=== PATIENT | female | born 1960 | race Caucasian/White ===

== ENCOUNTER → 2018-11-11 11:58 | Outpatient (CLI) | payer MEDICAID, SELFPAY ==
--- NOTE | 2018-11-11 12:03 | XR_ITS ---
XR chest 2V HISTORY: ITS.REASON: COUGH ORDERING PHYSICIAN: Letty Jewell PATIENT AGE: 57 years COMPARISON: 06/28/2017 FINDINGS: Unremarkable cardiovascular structures. There is COPD with small bilateral pleural effusions. Parenchymal opacity is present in the left lower lobe and may be due to an area of atelectasis or infiltrate. A nodular opacity is present in the left perihilar region at 1.8 x 1.2 cm and could be due to an area of infiltrate or fibrosis versus developing pulmonary nodule. Chest CT with contrast suggested for further evaluation. There is prominence of the left hilum with increased density in the left perihilar region. Patchy density is also present in the right upper lobe be due to an area of infiltrate. No acute bony findings. IMPRESSION: 1. COPD with bilateral effusions and left basilar atelectasis or infiltrate with patchy infiltrate in the right upper lobe. 2. Prominent left hilum with nodular opacities in the left perihilar region. Neoplasm is not excluded and chest CT with contrast is suggested for follow-up evaluation.
== END ==
PROVIDERS: PCP Nurse Practitioner Family; Visit Provider Nurse Practitioner Family
DX: R05 Cough (principal)
CPT/HCPCS: 71046

== ENCOUNTER 2020-12-02 21:30 | Inpatient (IN) | payer MEDICARE, OTHER, SELFPAY ==
[2020-12-02 21:32] VITALS: BP 111/65; PULSE 100; RESP 22; TEMP 37.1; O2SAT 100; BMI 19.2
[2020-12-02 21:47] VITALS: BP 109/59; PULSE 94; RESP 22; O2SAT 93
--- NOTE | 2020-12-02 21:47 | XR_ITS ---
PROCEDURE: XR WRIST RT MIN 3V CLINICAL INDICATION: fall Pain COMPARISON: No exams were available for comparison FINDINGS: Nondisplaced fracture involves the diaphyseal metaphyseal junction of the distal radius 1 cm proximal to the articular surface. The fracture is transverse in nature. The ulna has an unremarkable appearance. IMPRESSION: Nondisplaced transverse distal radial fracture Dictated by: Talon Adkins MD 12/03/2020 05:38 Talon Adkins MD in [facility] 12/03/2020 05:38
--- NOTE | 2020-12-02 21:47 | CT_ITS ---
PROCEDURE: CT PELVIS WO CON CLINICAL INDICATION: fall Posttraumatic pain, fall with right hip pain COMPARISON: CT CT HIP RT WO CON from 12/02/2020 TECHNIQUE: Axial images obtained with sagittal and coronal reformats. All CT scans at the facility use one or more dose reduction, viz: automated exposure control, ma/kV adjustment per patient size (including targeted exams where dose is matched to indication, i.e. head), or iterative reconstruction technique. FINDINGS: There and impacted subcapital right femoral neck fracture. There is 17 mm proximal displacement of the distal fracture fragment as well as thirteen mm anterior displacement of the distal fracture fragment with external rotation of the distal fracture fragment. Along the anterior aspect of the femoral neck there is a faint lucency better seen on the dedicated hip CT axial image 39 and may only be related to a vascular groove. There is a moderate amount of retained colonic feces. IMPRESSION: Impacted subcapital right femoral neck fracture Dictated by: Talon Adkins MD 12/03/2020 06:32 Talon Adkins MD in [facility] 12/03/2020 06:32
--- NOTE | 2020-12-02 21:47 | XR_ITS ---
PROCEDURE: XR CHEST AP CLINICAL HISTORY: fall Posttraumatic pain COMPARISON: CR CXR CHEST(2 VIEWS-NOT PORTABLE) from 05/22/2017 CR CXR1 CHEST-PORTABLE from 06/28/2017 CR CXR2V XR chest 2V from 11/11/[address] CERVICAL SPINE WO CON from 12/02/2020 FINDINGS: Cardiomegaly with mild pulmonary venous congestion. Right IJ MediPort catheter is present with the tip in region of the distal SVC. The lungs are under penetrated. There are bilateral pleural effusions right larger than left. Increased density is present in the right mid and lower lung zone some which may be due to the underpenetration and patient positioning. Underlying pneumonia is also suspected at least in the lung base. No acute bony findings. IMPRESSION: Bilateral pleural effusions with right-sided pneumonia with mild CHF Dictated by: Talon Adkins MD 12/03/2020 05:42 Talon Adknis MD in [facility] 12/03/2020 05:42
--- NOTE | 2020-12-02 21:47 | CT_ITS ---
PROCEDURE: CT CERVICAL SPINE WO CON CLINICAL INDICATION: fall Neck injury with pain, contusion/abrasion or hematoma, cervical sprain/strain COMPARISON: No exams were available for comparison TECHNIQUE: Axial images obtained with sagittal and coronal reformats. All CT scans at the facility use one or more dose reduction, viz: automated exposure control, ma/kV adjustment per patient size (including targeted exams where dose is matched to indication, i.e. head), or iterative reconstruction technique. Axial spiral CT scanning performed of the cervical spine beginning at the base of the skull and continuing to the upper T-spine. 3-D multiplanar reconstruction with 3-D manipulation of volumetric data set in image rendering was completed by the radiologist and/or technologist with the supervision of the radiologist on independent workstation. FINDINGS: Normal alignment. No acute fracture or dislocation. Minimal cervical curvature convex right. Degenerative disc disease C6-C7. mild left foraminal narrowing C6-C7. Emphysematous changes lung apices. Right IJ MediPort catheter. Retention cyst in the left maxillary sinus. Left ethmoid small osteoma. IMPRESSION: No acute fracture Dictated by: Talon Adkins MD 12/03/2020 06:49 Talon Adkins MD in [facility] 12/03/2020 06:49
--- NOTE | 2020-12-02 21:47 | CT_ITS ---
PROCEDURE: CT HEAD/BRAIN WO CON CLINICAL INDICATION: fall Head injury with headache/pain, contusion, abrasion or hematoma COMPARISON: No exams were available for comparison TECHNIQUE: Axial images obtained. All CT scans at the facility use one or more dose reduction, viz: automated exposure control, ma/kV adjustment per patient size (including targeted exams where dose is matched to indication, i.e. head), or iterative reconstruction technique. FINDINGS: No midline shift, mass effect, intracranial hemorrhage, hydrocephalus, or extra-axial fluid collection is evident. There is generalized atrophy with hypoattenuation of the periventricular white matter consistent with microangiopathic changes. The calvarium has an unremarkable appearance. No mastoid effusion. Mucosal thickening is present in the ethmoid sinuses. Left maxillary retention cyst. Small osteoma mid aspect of the left ethmoid sinus. Small area of exostosis versus hyperdense subcutaneous nodule right frontal region of the vertex.. IMPRESSION: No acute intracranial finding Dictated by: Talon Adkins MD 12/03/2020 06:23 Talon Adkins MD in [facility] 12/03/2020 06:23
--- NOTE | 2020-12-02 21:47 | XR_ITS ---
PROCEDURE: XR PELVIS 1-2V CLINICAL INDICATION: fall Posttraumatic pain COMPARISON: CT CT HIP RT WO CON from 12/02/2020 TECHNIQUE: Transcervical right femoral neck fracture with foreshortening of the fracture fragments and proximal displacement of the distal fracture fragment by 19 mm. The femoral head is located. There is diffuse overlying artifact from the patient's garment or sheet. FINDINGS: Transcervical right femoral neck fracture with foreshortening of the fracture fragments No significant degenerative change. No lytic or blastic change. IMPRESSION: No acute findings. Dictated by: Talon Adkins MD 12/03/2020 05:36 Talon Adkins MD in [facility] 12/03/2020 05:36
[2020-12-02 21:55] LABS: ABG Base Excess 5.5 mmol/L (-2.4-2.3); ABG HCO3 30.8 mmhg (22.0-26.0); ABG Oxygen Saturation 96 % (90-100); ABG PH 7.37 mmol/L (7.35-7.45); ABG PO2 83.7 mmhg (80-100); ABG TCO2 32.5 mmhg (23-27); Allen's Test Y; Oxygen 4 %
[2020-12-02 21:56] LABS: ABG PCO2 54.5 mmhg (35.0-45.0); Source R/R
[2020-12-02 22:24] VITALS: BP 107/66; PULSE 95; RESP 22; O2SAT 92
[2020-12-02 22:34] LABS: Basophils # 0.5 K/mm3 (0-0.2); Basophils % 0.9 % (0.1-2.0); Eosinophils # 0.1 K/mm3 (0.0-0.4); Eosinophils % 0.2 % (0.1-12.0); Hemoglobin 9.4 g/dL (12.2-16.2); Lymphocytes # 1.1 K/mm3 (0.7-4.5); Mean Corpuscular HGB Conc 32.3 g/dL (31.8-35.4); Mean Corpuscular Hemoglobin 28.1 pg (27.0-31.2); Mean Platelet Volume 7.3 fl (7.4-10.4); Monocytes % 1.9 % (1.7-9.3); Neutrophils # 52.2 K/mm3 (1.8-7.8); Red Blood Count 3.36 M/mm3 (4.20-5.40); Red Cell Distribution Width 16.8 % (11.5-17.5)
[2020-12-02 22:36] LABS: Alanine Aminotransferase 47 U/L (12-78); Albumin Level 3.3 g/dl (3.5-5.0); Albumin/Globulin Ratio 1.4 (1.1-1.8); Alkaline Phosphatase 70 U/L (38-126); Anion Gap 8.1 mEq/L (5-15); Aspartate Amino Transferase 38 U/L (14-36); Blood Urea Nitrogen 29 mg/dl (7-17); Calcium 9.2 mg/dl (8.4-10.2); Carbon Dioxide 31 mmol/L (22.0-30.0); Chloride 105 mmol/L (98-107); Creatinine Clearance Estimated 55 mL/min (50-200); Estimated Glomerular Filt Rate 64 ml/min (>60); GFR (African American) 77 ML/MIN (>60); Globulin 2.3 g/dL (1.3-3.2); Glucose 115 mg/dl (74-100); Potassium 4.1 mmoL/L (3.5-5.1); Sodium 140 mmol/L (136-145); Total Protein,Serum 5.6 g/dl (6.3-8.2); White Blood Count 54.9 K/mm3 (4.8-10.8)
[2020-12-02 22:37] LABS: Hematocrit 29.2 % (37.0-47.0); Platelet Count 642 K/mm3 (142-424)
[2020-12-02 22:38] LABS: Bilirubin,Total 0.1 mg/dl (0.2-1.3); MANUAL DIFFERENTIAL MANUAL DIFFERENTIAL (MANUAL DIFF)
[2020-12-02 22:42] LABS: C-Reactive Protein 1.9 mg/L (0-4)
--- NOTE | 2020-12-02 22:50 | PC.NURSE ---
Critical WBC given to Dr. Smiley
[2020-12-02 22:55] LABS: Procalcitonin 0.082 ng/mL (0.0-2.0)
[2020-12-02 22:58] LABS: Lactic Acid 0.9 mmol/L (0.7-2.1)
[2020-12-02 23:16] LABS: Erythrocyte Sedimentation Rate 31 mm/hr (0-30)
[2020-12-02 23:31] LABS: Lymphocytes % 4 % (10-50); Neutrophils % 92 % (42-76); Total Cells Counted 100
[2020-12-02 23:32] LABS: Platelet Estimate Moderate Increase
[2020-12-02 23:33] LABS: RBC Morphology Normal
[2020-12-03] VITALS (11 sets, daily range): BP systolic 107–144; BP diastolic 66–75; PULSE 88–100; RESP 18–22; TEMP 36.7–37.1; O2SAT 90–99; BMI 19.2
--- NOTE | 2020-12-03 00:28 | HMH.EDFALL ---
ED Disposition Clinical Impression: Syncope Qualifiers: Syncope type: unspecified Qualified Code(s): R55 - Syncope and collapse Hip fracture Qualifiers: Encounter type: initial encounter Fracture type: closed Laterality: right Qualified Code(s): S72.001A - Fracture of unspecified part of neck of right femur, initial encounter for closed fracture Wrist fracture, right Qualifiers: Encounter type: initial encounter Fracture type: closed Qualified Code(s): S62.101A - Fracture of unspecified carpal bone, right wrist, initial encounter for closed fracture COPD (chronic obstructive pulmonary disease) Qualifiers: COPD type: unspecified COPD Qualified Code(s): J44.9 - Chronic obstructive pulmonary disease, unspecified Leukocytosis Qualifiers: Leukocytosis type: unspecified Qualified Code(s): D72.829 - Elevated white blood cell count, unspecified Anemia Qualifiers: Anemia type: unspecified type Qualified Code(s): D64.9 - Anemia, unspecified Breast cancer in female Qualifiers: Breast location: unspecified site of breast Estrogen receptor status: unspecified Laterality: unspecified laterality Qualified Code(s): C50.919 - Malignant neoplasm of unspecified site of unspecified female breast Disposition: Admitted As Inpatient Condition on Discharge: Serious - Critical Care Critical Care Time: No Attestation: On 12/02/20, the high probability of a clinically significant, sudden or life threatening deterioration of the following system(s) required my full and direct attention, intervention and personal management. The time I documented below is in addition to time spent performing reported procedures but includes the following listed in this critical care notation. Medical Decision Making - Medical Records Medical records reviewed: Yes: I reviewed the patient's medical records. - Reagan Inquiry Pt receiving controlled substance: No Vital Signs: 12/02/20 21:32 12/02/20 21:47 12/02/20 22:24 Temperature 98.8 F Temperature Source Oral Pulse Rate 94 H 95 H Pulse Rate [Right] 100 H Respiratory Rate 22 22 Blood Pressure 109/59 L 107/66 L Blood Pressure [Left Arm] 111/65 Blood Pressure Mean [Left Arm] 80 Blood Pressure Source [Left Arm] Automatic Cuff Blood Pressure Position [Left Arm] Supine 02 Sat by Pulse Oximetry 100 93 L 92 L Oxygen Delivery Method Nasal Cannula Nasal Cannula Oxygen Flow Rate (LPM) 4 4 12/03/20 01:24 Temperature Temperature Source Pulse Rate 92 H Pulse Rate [Right] Respiratory Rate 22 Blood Pressure 110/73 Blood Pressure [Left Arm] Blood Pressure Mean [Left Arm] Blood Pressure Source [Left Arm] Blood Pressure Position [Left Arm] 02 Sat by Pulse Oximetry 90 L Oxygen Delivery Method Nasal Cannula Oxygen Flow Rate (LPM) 4 - Lab Data Lab results reviewed: Yes: I reviewed the patient's lab results. Lab Results 12/02/20 21:54: Specimen Source R/r, O2 % 4, ABG pH 7.37, ABG pCO2 54.5 H, ABG pO2 83.7, ABG HCO3 30.8 H, ABG Total CO2 32.5 H, ABG O2 Saturation 96, ABG Base Excess 5.5 H, Talon Test Y 12/02/20 22:20: WBC 54.9 H*, RBC 3.36 L, Hgb 9.4 L, Hct 29.2 L, MCV 87.0, MCH 28.1, MCHC 32.3, RDW 16.8, Plt Count 642 H, MPV 7.3 L, Neut % (Auto) 95.0 H, Lymph % (Auto) 2.0 L, [place] % (Auto) 1.9, Eos % (Auto) 0.2, Baso % (Auto) 0.9, Neut # (Auto) 52.2 H, Lymph # (Auto) 1.1, [place] # (Auto) 1.0, Eos # (Auto) 0.1, Baso # (Auto) 0.5 H, Total Counted 100, Neutrophils % (Manual) 92 H, Band Neutrophils % 3.0, Lymphocytes % (Manual) 4 L, Metamyelocytes % 1.0, Platelet Estimate Moderate increase, RBC Morphology Normal, ESR 31 H 12/02/20 22:20: Sodium 140, Potassium 4.1, Chloride 105, Carbon Dioxide 31 H, Anion Gap 8.1, BUN 29 H, Creatinine 0.90, Estimated Creat Clear 55, Estimated GFR 64, Est GFR ( Amer) 77, Glucose 115 H, Calcium 9.2, Total Bilirubin 0.1 L, AST 38 H, ALT 47, Alkaline Phosphatase 70, C-Reactive Protein 1.9, Total Protein 5.6 L, Albumin 3.3 L, Globulin 2.3, Albumin/Globu
--- NOTE | 2020-12-03 00:31 | ECG_ITS ---
APPROVED REPORT Exam: Resting ECG HR:93 bpm ECG Measurements Heart Rate 93 AXES GA 148 P 79 QRSd 86 QRS 78 QT 330 T 66 QTc 410 Conclusion Normal sinus rhythm Normal ECG Electronically signed by : Tong Ho, 12/03/2020 19:01:26
[2020-12-03 00:41] LABS: Adenovirus,PCR Not Detected (NotDetected); Bordetella Pertussis Not Detected (NotDetected); Chlamydophila Pneumoniae, PCR Not Detected (NotDetected); Coronavirus 19, PCR Not Detected (NotDetected); Coronavirus 229E Not Detected (NotDetected); Coronavirus NL63 Not Detected (NotDetected); Coronavirus OC43 Not Detected (NotDetected); Coronovirus HKU1,PCR Not Detected (NotDetected); Human Metapneumovirus Not Detected (NotDetected); Influenza A, PCR Not Detected (NotDetected); Influenza AH1, 2009 Not Detected (NotDetected); Influenza AH1, PCR Not Detected (NotDetected); Influenza AH3,PCR Not Detected (NotDetected); Influenza B, PCR Not Detected (NotDetected); Mycoplasma Pneumoniae, PCR Not Detected (NotDetected); Parainfluenza 1, PCR Not Detected (NotDetected); Parainfluenza 2, PCR Not Detected (NotDetected); Parainfluenza 3, PCR Not Detected (NotDetected); Parainfluenza 4, PCR Not Detected (NotDetected); Respiratory Syncytial Virus Not Detected (NotDetected); Rhinovirus/Enterovirus Not Detected (NotDetected)
[2020-12-03 00:54] LABS: Troponin I < 0.01 ng/ml (0.00-0.034)
--- NOTE | 2020-12-03 01:30 | PC.NURSE ---
spoke with renee from pharmacy about lovenox dosage
[2020-12-03 03:50] LABS: Troponin I < 0.01 ng/ml (0.00-0.034)
[2020-12-03 07:09] LABS: Basophils # 0.6 K/mm3 (0-0.2); Basophils % 0.9 % (0.1-2.0); Hematocrit 29.7 % (37.0-47.0); Hemoglobin 9.2 g/dL (12.2-16.2); Lymphocytes # 2.2 K/mm3 (0.7-4.5); Lymphocytes % 3.5 % (10-50); Mean Corpuscular HGB Conc 30.9 g/dL (31.8-35.4); Mean Corpuscular Hemoglobin 27.7 pg (27.0-31.2); Mean Corpuscular Volume 89.6 fl (81-99); Mean Platelet Volume 7.6 fl (7.4-10.4); Monocytes # 1.6 K/mm3 (0.1-1.0); Monocytes % 2.4 % (1.7-9.3); Neutrophils # 60.6 K/mm3 (1.8-7.8); Neutrophils % 93.2 % (37.0-80.0); Platelet Count 641 K/mm3 (142-424); Red Blood Count 3.32 M/mm3 (4.20-5.40); Red Cell Distribution Width 16.7 % (11.5-17.5)
[2020-12-03 07:16] LABS: MANUAL DIFFERENTIAL MANUAL DIFFERENTIAL (MANUAL DIFF)
[2020-12-03 07:27] LABS: Chloride 103 mmol/L (98-107); Potassium 4.7 mmoL/L (3.5-5.1); Sodium 138 mmol/L (136-145)
[2020-12-03 07:30] LABS: Anion Gap 2.7 mEq/L (5-15); Blood Urea Nitrogen 30 mg/dl (7-17); Calcium 9.6 mg/dl (8.4-10.2); Carbon Dioxide 37 mmol/L (22.0-30.0); Creatinine Clearance Estimated 55 mL/min (50-200); Estimated Glomerular Filt Rate 85 ml/min (>60); GFR (African American) 103 ML/MIN (>60); Glucose 81 mg/dl (74-100)
[2020-12-03 07:33] LABS: INR 0.98 (0.9-1.1); Prothrombin Time 11.6 seconds (10.1-12.5); Troponin I < 0.01 ng/ml (0.00-0.034)
--- NOTE | 2020-12-03 08:00 | CA_ITS ---
APPROVED REPORT EXAM: Comprehensive 2D, Doppler, and color-flow Echocardiogram Mate Fishing Vessel: Radha Ellison CRT Ht: 5 ft 9 in Wt: 130lbs BSA: 1.72 BP: 110/73 mmHg Indications: COPD, Syncope, preop hip fx, wrist fx, smoker 2D Dimensions LVOT 1.77 cm (M/F) 1.5-2.5 LA Volume 31.90 mL LA Volume Index [id number] mL/m2 (M/F) 16-34 M-Mode Dimensions RVDd 2.59 cm (0.9-2.6) LA Diam 3.37 cm (1.9-4.0) LVDd 4.38 cm (3.5-5.7) Ao Diam 3.83 cm (2.0-3.7) LVDs 2.66 cm (3.5-5.7) IVSd 1.22 cm (0.6-1.1) PWd 1.19 cm (0.6-1.1) EF (Teich) 70.00% FS 39.30% EDV (Teich) 86.80 mL ESV (Teich) 26.00 mL LV Diastology E Decel Time 93.00 (160-240 msec) E/A Ratio 0.91 MED E' 10.50 (< 7 cm/sec) MED A' 14.60 cm/s E'/MED E' Ratio 8.67 (>14) LAT E' 11.50 (<10 cm/sec) LAT A' 16.50 cm/s E/LAT E' Ratio 7.91 (>14) Aortic Valve AO Peak GR. 9.90 mmHg Mitral Valve MV A Velocity 100.00 (40-130 cm/s) E/A Ratio 0.91 MV Decel. Time 93.00 (160-240 ms) Pulmonary Valve PV Peak Velocity 85.00 (50-150 cm/s) Tricuspid Valve TR P. Velocity 147.00 cm/s RAP Estimate 10.00 mmHg RVSP 18.70 mmHg Left Ventricle Technically difficult study because of the patient factors and poor acoustic windows. Left atrium is mildly enlarged, left ventricle is normal size, mild concentric left ventricular hypertrophy, visually estimated ejection fraction 55% with no regional wall motion abnormality, grade 1 diastolic dysfunction seen without tissue Doppler evidence of raise left atrial pressure. Right Ventricle Right atrium and right ventricle are mildly enlarged with normal contractility. Aortic Valve Aortic valve is minimally thickened and fibrosed, there is no aortic stenosis or aortic insufficiency. Mitral Valve Mitral valve is grossly normal, there is trace mitral regurgitation. Tricuspid Valve Tricuspid grossly normal, there is trace tricuspid regurgitation, tricuspid regurgitation jet velocity is inadequate for calculation of the right ventricular systolic pressure. Pulmonic Valve Pulmonic valve is poorly visualized. Great Vessels Aortic root is normal size. Pericardium No significant pericardial effusion noted. Conclusion 1. Mild biatrial abdomen, normal left ventricular size, visually estimated ejection fraction 55% with no regional wall motion abnormality, grade 1 diastolic dysfunction seen without tissue Doppler evidence of raise left atrial pressure. 2. Mildly enlarged right ventricle with normal contractility. 3. Trace mitral and tricuspid regurgitation. 4. No significant pericardial effusion noted. Electronically signed by : Dixon Nolasco, 12/03/2020 10:12:16
--- NOTE | 2020-12-03 08:05 | PC.NURSE ---
Addendum entered by Kirk Mccord RN 12/03/20 08:43: DATE ENTERED INCORRECTLY 12/03/2020 Original Note: SPOKE WITH DR GRAY REGARDING PT WBC COUNT @ 0745 12/02/2020.
--- NOTE | 2020-12-03 08:45 | XR_ITS ---
PROCEDURE: XR HIP RT 2-3V W/PELVIS CLINICAL INDICATION: R hip fx Follow-up fracture COMPARISON: CR XR PELVIS 1-2V from 12/02/2020 FINDINGS: Right subcapital femoral neck fracture is present with foreshortening of the fracture fragments. There is 1.7 cm proximal displacement of the distal fracture fragment. The femoral head is located. IMPRESSION: Subcapital right femoral neck fracture with foreshortening of the fracture fragments similar to the previous exam Dictated by: Talon Adkins MD 12/03/2020 15:43 Talon Adkins MD in [place] 12/03/2020 15:43
--- NOTE | 2020-12-03 09:14 | HMH.HP ---
*Admission Date: 12/03/20 *Chief complaint: Fall at home with right hip fracture *History of present illness: 59-year-old white female with oxygen requiring COPD and a history of breast cancer, metastatic to lung, lymph nodes, currently on active chemotherapy with Port-A-Cath in place, who was in her house yesterday doing some kitchen work and fell down after getting some food out of the refrigerator, fell onto her pelvic area, was unable to walk, brought to the emergency department. Found to have hip fracture, wrist fracture and was admitted to hospital for further evaluation. This morning she feels about her normal self, wearing oxygen, comfortable, denies pain or shortness of air as long as she does not move about. [facility] History I have reviewed the patient's past medical history: Yes Medical History: Reports:: Cancer, Congestive Heart Failure Denies:: Diabetes Mellitus Type 1, Diabetes Mellitus Type 2 *Have you ever received a pneumonia vaccine?: Yes *Have you received a flu vaccine this season?: Yes - *Social History Last grade of school completed: High school graduate Smoking Status: Current every day smoker Tobacco Type: cigarettes # Packs/Day (cigarettes): 1 Alcohol Intake: never *Occupational Status:: retired *Travel in the last 8 weeks: None Family Hx:: No significant family history Review of Systems - Review of Systems Review of systems:: pertinent systems reviewed and negative unless documented below - *Neurologic Reports weakness, Denies abnormal speech, Denies localized weakness, Denies seizure-like activity Meds Home Medications Medication Instructions Recorded Confirmed Type Amitriptyline HCl 100 mg PO HS 12/02/20 12/02/20 History Ascorbic Acid [Vitamin C] 1,000 mg PO DAILY 12/02/20 12/02/20 History Bifidobacterium Infantis [Align] 4 mg PO DAILY 12/02/20 12/02/20 History Cetirizine HCl [Zyrtec] 10 mg PO DAILY 12/02/20 12/02/20 History Cholecalciferol (Vitamin D3) 50,000 unit PO WEEKLY 12/02/20 12/02/20 History [Vitamin D3 50,000 unit Cap] Citalopram Hydrobromide 10 mg PO DAILY 12/02/20 12/02/20 History [Citalopram 10mg Tablet] Diphenoxylate HCl/Atropine 2.5 mg PO BID PRN 12/02/20 12/02/20 History [Lomotil 2.5mg tablet] Fluconazole [Diflucan] 200 mg PO WEEKLY 12/02/20 12/02/20 History LORazepam [Lorazepam 1mg Tablet] 1 mg PO Q6 PRN 12/02/20 12/02/20 History Megestrol Acetate [Megestrol 400 mg PO BID 12/02/20 12/02/20 History Acetate 400mg/10mL Udc] Nystatin [Nystatin Susp 500,000 10 ml PO QID 12/02/20 12/02/20 History Units/5mL Udc] Venlafaxine HCl [Venlafaxine HCl 150 mg PO HS 12/02/20 12/02/20 History ER] guaiFENesin [Mucinex 600mg tablet] 1,200 mg PO HS 12/02/20 12/02/20 History levoFLOXacin [Levofloxacin 750MG 750 mg PO DAILY 12/02/20 12/02/20 History Tablet*] methylPREDNISolone 1 dose PO DAILY 12/02/20 12/02/20 History [Methylprednisolone] Allergies Allergy/AdvReac Type Severity Reaction Status Date / Time No Known Allergies Allergy Unverified 08/04/17 14:27 Exam Vital signs and Labs for Last 24 Hours: Temp Pulse Resp BP Pulse Ox 98.3 F 96 H 19 107/73 L 96 12/03/20 08:00 12/03/20 08:00 12/03/20 08:00 12/03/20 08:00 12/03/20 08:00 Laboratory Results - last 24 hr 12/02/20 21:54: Specimen Source R/r, O2 % 4, ABG pH 7.37, ABG pCO2 54.5 H, ABG pO2 83.7, ABG HCO3 30.8 H, ABG Total CO2 32.5 H, ABG O2 Saturation 96, ABG Base Excess 5.5 H, Talon Test Y 12/02/20 22:20: WBC 54.9 H*, RBC 3.36 L, Hgb 9.4 L, Hct 29.2 L, MCV 87.0, MCH 28.1, MCHC 32.3, RDW 16.8, Plt Count 642 H, MPV 7.3 L, Neut % (Auto) 95.0 H, Lymph % (Auto) 2.0 L, [place] % (Auto) 1.9, Eos % (Auto) 0.2, Baso % (Auto) 0.9, Neut # (Auto) 52.2 H, Lymph # (Auto) 1.1, [place] # (Auto) 1.0, Eos # (Auto) 0.1, Baso # (Auto) 0.5 H, Total Counted 100, Neutrophils % (Manual) 92 H, Band Neutrophils % 3.0, Lymphocytes % (Manual) 4 L, Metamyelocytes % 1.0, Platelet Estimate Moderate increase, RBC Morphology Norm
--- NOTE | 2020-12-03 09:26 | XR_ITS ---
PROCEDURE: XR CHEST PORTABLE CLINICAL HISTORY: PNM Follow-up pneumonia COMPARISON: CR CXR1 CHEST-PORTABLE from 06/28/2017 CR CXR2V XR chest 2V from 11/11/2018 CR XR CHEST AP from 12/02/2020 FINDINGS: There is cardiomegaly with mild pulmonary venous congestion consistent with mild CHF with small bilateral effusions. There is interstitial edema in the lung bases with atelectasis or infiltrate in the right lower lobe. Right IJ MediPort catheter is present with the tip in the region the SVC. No acute bony abnormalities. IMPRESSION: CHF with bilateral effusions and interstitial edema with right lower lobe pneumonia versus atelectatic change Dictated by: Talon Adkins MD 12/03/2020 09:56 Talon Adkins MD in [place] 12/03/2020 09:56
--- NOTE | 2020-12-03 10:27 | HMH.CNCARD ---
History of Present Illness Consult date: 12/03/20 Consult reason: pre-op evaluation Chief complaint: Right hip, right wrist pain after fall Additional Medical History:: 1. Tobacco use, ongoing A. Severe COPD with chronic oxygen use at 4 L/min 2. Metastatic breast cancer to the lung and lymph nodes with ongoing chemotherapy 3. Anemia (greater than 9) with elevated WBC (greater than 50) and platelets (greater than 600), 11/2020 4. Fall with right wrist and hip fractures, 11/2020 History of present illness: 59-year-old white female with oxygen requiring COPD and a history of breast cancer, metastatic to lung, lymph nodes, currently on active chemotherapy with Port-A-Cath in place, who was in her house yesterday doing some kitchen work and fell down after getting some food out of the refrigerator, fell onto her pelvic area, was unable to walk, brought to the emergency department. Found to have hip fracture, wrist fracture and was admitted to hospital for further evaluation. This morning she feels about her normal self, wearing oxygen, comfortable, denies pain or shortness of air as long as she does not move about. The above per Dr. Ho Cardiology consulted for preop cardiovascular evaluation. Patient denies any history of cardiac issues including AL or CHF. Patient has been a lifelong smoker with subsequent COPD requiring 4 L of oxygen. History of metastatic breast cancer noted above. Patient denies treatment for hypertension, hyperlipidemia or diabetes. EKG is sinus rhythm with no acute ST segment changes. Troponins are normal x3. Preliminary echocardiogram shows an ejection fraction of greater than 55% with mild valvular insufficiencies. Patient relates chronic chest discomfort related to difficulty breathing after exercise/overexerting herself which is unchanged over the last several months. [facility] History Medical History: Reports:: Cancer, Congestive Heart Failure Denies:: Diabetes Mellitus Type 1, Diabetes Mellitus Type 2 *Have you ever received a pneumonia vaccine?: Yes *Have you received a flu vaccine this season?: Yes - *Social History Last grade of school completed: High school graduate Smoking Status: Current every day smoker Tobacco Type: cigarettes # Packs/Day (cigarettes): 1 Alcohol Intake: never *Occupational Status:: retired *Travel in the last 8 weeks: None Family Hx:: No significant family history Meds Home Medications Medication Instructions Recorded Confirmed Type Amitriptyline HCl 100 mg PO HS 12/02/20 12/02/20 History Ascorbic Acid [Vitamin C] 1,000 mg PO DAILY 12/02/20 12/02/20 History Bifidobacterium Infantis [Align] 4 mg PO DAILY 12/02/20 12/02/20 History Cetirizine HCl [Zyrtec] 10 mg PO DAILY 12/02/20 12/02/20 History Cholecalciferol (Vitamin D3) 50,000 unit PO WEEKLY 12/02/20 12/02/20 History [Vitamin D3 50,000 unit Cap] Citalopram Hydrobromide 10 mg PO DAILY 12/02/20 12/02/20 History [Citalopram 10mg Tablet] Diphenoxylate HCl/Atropine 2.5 mg PO BID PRN 12/02/20 12/02/20 History [Lomotil 2.5mg tablet] Fluconazole [Diflucan] 200 mg PO WEEKLY 12/02/20 12/02/20 History LORazepam [Lorazepam 1mg Tablet] 1 mg PO Q6 PRN 12/02/20 12/02/20 History Megestrol Acetate [Megestrol 400 mg PO BID 12/02/20 12/02/20 History Acetate 400mg/10mL Udc] Nystatin [Nystatin Susp 500,000 10 ml PO QID 12/02/20 12/02/20 History Units/5mL Udc] Venlafaxine HCl [Venlafaxine HCl 150 mg PO HS 12/02/20 12/02/20 History ER] guaiFENesin [Mucinex 600mg tablet] 1,200 mg PO HS 12/02/20 12/02/20 History levoFLOXacin [Levofloxacin 750MG 750 mg PO DAILY 12/02/20 12/02/20 History Tablet*] methylPREDNISolone 1 dose PO DAILY 12/02/20 12/02/20 History [Methylprednisolone] Allergies Allergy/AdvReac Type Severity Reaction Status Date / Time No Known Allergies Allergy Unverified 08/04/17 14:27 Exam Vital signs and Labs for Last 24 Hours: Temp Pulse Resp BP Pulse Ox 98.3 F 96 H 19 107/73 L
--- NOTE | 2020-12-03 10:51 | HMH.PHAINT ---
MEDICATION RECONCILIATION COMPLETED ON PATIENT USING EXTERNAL FILL HISTORY FROM PHARMACY. -AMAYA OVALLE, FELICIAD
[2020-12-03 11:01] LABS: Anisocytosis 1+; Hypochromasia 1+; Lymphocytes % 16 % (10-50); Monocytes % 4 % (2-9); Neutrophils % 80 % (42-76); Platelet Estimate Slight Increase; Total Cells Counted 100
--- NOTE | 2020-12-03 12:39 | HMH.PULMCON ---
*Admission Date: 12/03/20 *Reason for consult:: Preoperative clearance/COPD *History of present illness: Mr. Winter is 59-year-old male greater than [id number] smoking history, current smoker, carries a diagnosis stage IV breast cancer, COPD with chronic long-term oxygen therapy at 4 L for the last 2 years, childhood history of asthma presented to the hospital status post fall with hip fracture and radial fracture and pulmonary was called for perioperative pulmonary management. [facility] History Medical History: Reports:: Cancer, Congestive Heart Failure Denies:: Diabetes Mellitus Type 1, Diabetes Mellitus Type 2 *Have you ever received a pneumonia vaccine?: Yes *Have you received a flu vaccine this season?: Yes - *Social History Last grade of school completed: High school graduate Smoking Status: Current every day smoker Tobacco Type: cigarettes # Packs/Day (cigarettes): 1 Alcohol Intake: never *Occupational Status:: retired *Travel in the last 8 weeks: None Family Hx:: No significant family history ROS - Cons Reports anorexia, Reports fatigue, Denies chills, Denies fever(s) - Card Reports shortness of breath, Reports shortness of breath with activity, Reports leg swelling - Resp Respiratory: Denies chest congestion, Denies non-productive cough, Reports dyspnea, Reports dyspnea on exertion, Denies excessive phlegm production, Denies coughing up blood, Denies pain with cough - GI Gastrointestingal: Denies: abdominal pain Meds Home Medications Medication Instructions Recorded Confirmed Type Amitriptyline HCl 100 mg PO HS 12/02/20 12/02/20 History Ascorbic Acid [Vitamin C] 1,000 mg PO DAILY 12/02/20 12/02/20 History Bifidobacterium Infantis [Align] 4 mg PO DAILY 12/02/20 12/02/20 History Cetirizine HCl [Zyrtec] 10 mg PO DAILY 12/02/20 12/02/20 History Cholecalciferol (Vitamin D3) 50,000 unit PO WEEKLY 12/02/20 12/02/20 History [Vitamin D3 50,000 unit Cap] Citalopram Hydrobromide 10 mg PO DAILY 12/02/20 12/02/20 History [Citalopram 10mg Tablet] Diphenoxylate HCl/Atropine 2.5 mg PO DAILYP PRN 12/02/20 12/03/20 History [Lomotil 2.5mg tablet] Fluconazole [Diflucan] 200 mg PO WEEKLY 12/02/20 12/02/20 History LORazepam [Lorazepam 1mg Tablet] 1 mg PO TIDP PRN 12/02/20 12/03/20 History Megestrol Acetate [Megestrol 400 mg PO BID 12/02/20 12/02/20 History Acetate 400mg/10mL Udc] Nystatin [Nystatin Susp 500,000 4 ml PO QID 12/02/20 12/03/20 History Units/5mL Udc] Venlafaxine HCl [Venlafaxine HCl 150 mg PO HS 12/02/20 12/02/20 History ER] guaiFENesin [Mucinex 600mg tablet] 1,200 mg PO HS 12/02/20 12/02/20 History levoFLOXacin [Levofloxacin 750MG 750 mg PO DAILY 12/02/20 12/02/20 History Tablet*] methylPREDNISolone 4 mg PO DIRECTED 12/02/20 12/03/20 History [Methylprednisolone] Ipratropium/Albuterol Sulfate 3 ml IH QID 12/03/20 12/03/20 History [Duoneb 3mL neb] Allergies Allergy/AdvReac Type Severity Reaction Status Date / Time No Known Allergies Allergy Unverified 08/04/17 14:27 Exam - Constitutional Constitutional:: Present: no acute distress, comfortable - HENMT Exam HENMT: Present: normocephalic - Eye Exam Eyes:: Present: eyelids normal - Neck Exam Neck:: Present: normal visual inspection - Respiratory Exam Respiratory:: Present: able to speak in complete sentences, respiratory distress, decreased breath sounds, wheezing - Cardiovascular Exam Cardiac:: Present: S1, S2 - GI Exam GI:: Present: soft - Skin Exam Skin: Present: warm, no rash - Neurological Exam Neurological: Present: alert, awake, normal cognition - Extremities Exam Extremities: Present: no cyanosis, no clubbing, edema - Psychiatric Exam Psychiatric: Present: normal affect Internal Medicine - CN: Reslt - Labs CBC & Chem 7: 12/03/20 06:35 12/03/20 06:00 Labs: Short CBC 12/02/20 12/03/20 Range/Units 22:20 06:35 WBC 54.9 H* 65.0 H* (4.8-10.8) K/mm3 Hgb 9.4
--- NOTE | 2020-12-03 12:45 | HMH.ORTHOCON ---
*Admission Date: 12/03/20 *Reason for consult:: R hip fracture + R wrist fracture *History of present illness: 59-year-old female admitted overnight with injury to the right hip and right wrist. She was in her home yesterday walking to the freezer to get some ice cream when she fell. She was unable to walk after the fall and was taken to the emergency department, where right wrist and right hip fractures were identified. She denies any chest pain or shortness of breath prior to the fall, and does not recall a pop or snap in the hip prior to falling; it is unknown if the hip fracture occurred prior to or after the fall. She has never injured this hip before. She has a history of oxygen dependent COPD and metastatic breast cancer. Chemotherapy is ongoing; mets were found to the lung and lymph nodes. She has a right chest Port-A-Cath which is accessed for her chemo. Her son says she was recently hospitalized last week due to a suspected Covid vaccine adverse reaction described as disorientation and shortness of breath. She was discharged home last Thursday. She did not undergo any surgery for her breast cancer, as she was thought to be high risk due to her lung disease. She is currently on 4 L of home oxygen via nasal cannula. She typically ambulates around her home without any issues and does not require the use of a walker or cane. However, her community ambulation is limited and her son says her walking tolerance is probably around 50 feet. No anticoagulant use. [facility] History I have reviewed the patient's past medical history: Yes Medical History: Reports:: Cancer, Congestive Heart Failure Denies:: Diabetes Mellitus Type 1, Diabetes Mellitus Type 2 *Have you ever received a pneumonia vaccine?: Yes *Have you received a flu vaccine this season?: Yes - *Social History Last grade of school completed: High school graduate Smoking Status: Current every day smoker Tobacco Type: cigarettes # Packs/Day (cigarettes): 1 Alcohol Intake: never *Occupational Status:: retired *Travel in the last 8 weeks: None Family Hx:: No significant family history Review of Systems - Review of Systems Review of systems:: pertinent systems reviewed and negative unless documented below - *Neurologic Reports weakness, Denies abnormal speech, Denies localized weakness, Denies seizure-like activity Meds Home Medications Medication Instructions Recorded Confirmed Type Amitriptyline HCl 100 mg PO HS 12/02/20 12/02/20 History Ascorbic Acid [Vitamin C] 1,000 mg PO DAILY 12/02/20 12/02/20 History Bifidobacterium Infantis [Align] 4 mg PO DAILY 12/02/20 12/02/20 History Cetirizine HCl [Zyrtec] 10 mg PO DAILY 12/02/20 12/02/20 History Cholecalciferol (Vitamin D3) 50,000 unit PO WEEKLY 12/02/20 12/02/20 History [Vitamin D3 50,000 unit Cap] Citalopram Hydrobromide 10 mg PO DAILY 12/02/20 12/02/20 History [Citalopram 10mg Tablet] Diphenoxylate HCl/Atropine 2.5 mg PO DAILYP PRN 12/02/20 12/03/20 History [Lomotil 2.5mg tablet] Fluconazole [Diflucan] 200 mg PO WEEKLY 12/02/20 12/02/20 History LORazepam [Lorazepam 1mg Tablet] 1 mg PO TIDP PRN 12/02/20 12/03/20 History Megestrol Acetate [Megestrol 400 mg PO BID 12/02/20 12/02/20 History Acetate 400mg/10mL Udc] Nystatin [Nystatin Susp 500,000 4 ml PO QID 12/02/20 12/03/20 History Units/5mL Udc] Venlafaxine HCl [Venlafaxine HCl 150 mg PO HS 12/02/20 12/02/20 History ER] guaiFENesin [Mucinex 600mg tablet] 1,200 mg PO HS 12/02/20 12/02/20 History levoFLOXacin [Levofloxacin 750MG 750 mg PO DAILY 12/02/20 12/02/20 History Tablet*] methylPREDNISolone 4 mg PO DIRECTED 12/02/20 12/03/20 History [Methylprednisolone] Ipratropium/Albuterol Sulfate 3 ml IH QID 12/03/20 12/03/20 History [Duoneb 3mL neb] Allergies Allergy/AdvReac Type Severity Reaction Status Date / Time No Known Allergies Allergy Unverified 08/04/17 14:27 Exam Vital signs and Labs for Last 24 Hours: Temp
--- NOTE | 2020-12-03 13:04 | HMH.PHACONS ---
- Pharmacy Consult Date: 12/03/20 Time: 13:04 Referring provider: DELLA Reason for Consult:: VANCOMYCIN THERAPY FOR ICU PNEUMONIA Allergies and ADEs:: Allergies Allergy/AdvReac Type Severity Reaction Status Date / Time No Known Allergies Allergy Unverified 08/04/17 14:27 Home Medications:: Home Medications Medication Instructions Recorded Confirmed Type Amitriptyline HCl 100 mg PO HS 12/02/20 12/02/20 History Ascorbic Acid [Vitamin C] 1,000 mg PO DAILY 12/02/20 12/02/20 History Bifidobacterium Infantis [Align] 4 mg PO DAILY 12/02/20 12/02/20 History Cetirizine HCl [Zyrtec] 10 mg PO DAILY 12/02/20 12/02/20 History Cholecalciferol (Vitamin D3) 50,000 unit PO WEEKLY 12/02/20 12/02/20 History [Vitamin D3 50,000 unit Cap] Citalopram Hydrobromide 10 mg PO DAILY 12/02/20 12/02/20 History [Citalopram 10mg Tablet] Diphenoxylate HCl/Atropine 2.5 mg PO DAILYP PRN 12/02/20 12/03/20 History [Lomotil 2.5mg tablet] Fluconazole [Diflucan] 200 mg PO WEEKLY 12/02/20 12/02/20 History LORazepam [Lorazepam 1mg Tablet] 1 mg PO TIDP PRN 12/02/20 12/03/20 History Megestrol Acetate [Megestrol 400 mg PO BID 12/02/20 12/02/20 History Acetate 400mg/10mL Udc] Nystatin [Nystatin Susp 500,000 4 ml PO QID 12/02/20 12/03/20 History Units/5mL Udc] Venlafaxine HCl [Venlafaxine HCl 150 mg PO HS 12/02/20 12/02/20 History ER] guaiFENesin [Mucinex 600mg tablet] 1,200 mg PO HS 12/02/20 12/02/20 History levoFLOXacin [Levofloxacin 750MG 750 mg PO DAILY 12/02/20 12/02/20 History Tablet*] methylPREDNISolone 4 mg PO DIRECTED 12/02/20 12/03/20 History [Methylprednisolone] Ipratropium/Albuterol Sulfate 3 ml IH QID 12/03/20 12/03/20 History [Duoneb 3mL neb] Height: 1.75 m Weight: 58.967 kg Laboratory Results:: Laboratory Results - last 24 hr 12/02/20 21:54: Specimen Source R/r, O2 % 4, ABG pH 7.37, ABG pCO2 54.5 H, ABG pO2 83.7, ABG HCO3 30.8 H, ABG Total CO2 32.5 H, ABG O2 Saturation 96, ABG Base Excess 5.5 H, [place]on Test Y 12/02/20 22:20: WBC 54.9 H*, RBC 3.36 L, Hgb 9.4 L, Hct 29.2 L, MCV 87.0, MCH 28.1, MCHC 32.3, RDW 16.8, Plt Count 642 H, MPV 7.3 L, Neut % (Auto) 95.0 H, Lymph % (Auto) 2.0 L, [place] % (Auto) 1.9, Eos % (Auto) 0.2, Baso % (Auto) 0.9, Neut # (Auto) 52.2 H, Lymph # (Auto) 1.1, [place] # (Auto) 1.0, Eos # (Auto) 0.1, Baso # (Auto) 0.5 H, Total Counted 100, Neutrophils % (Manual) 92 H, Band Neutrophils % 3.0, Lymphocytes % (Manual) 4 L, Metamyelocytes % 1.0, Platelet Estimate Moderate increase, RBC Morphology Normal, ESR 31 H 12/02/20 22:20: Sodium 140, Potassium 4.1, Chloride 105, Carbon Dioxide 31 H, Anion Gap 8.1, BUN 29 H, Creatinine 0.90, Estimated Creat Clear 55, Estimated GFR 64, Est GFR ( Amer) 77, Glucose 115 H, Calcium 9.2, Total Bilirubin 0.1 L, AST 38 H, ALT 47, Alkaline Phosphatase 70, C-Reactive Protein 1.9, Total Protein 5.6 L, Albumin 3.3 L, Globulin 2.3, Albumin/Globulin Ratio 1.4, Procalcitonin 0.082 12/02/20 22:24: Lactate 0.9 12/03/20 00:00: Troponin I < 0.01 12/03/20 00:30: Chlamy pneumoniae PCR Not detected, Adenovirus (PCR) Not detected, B. pertussis DNA (PCR) Not detected, Coronavirus OC43 (PCR) Not detected, Coronavirus HKU1 (PCR) Not detected, Coronavirus 229E (PCR) Not detected, SARS-CoV-2 (PCR) Not detected, Coronavirus NL63 (PCR) Not detected, Human Metapneumovir PCR Not detected, Influenza A (H1) PCR Not detected, Influ A (H1N1/09) PCR Not detected, Influenza A (H3) PCR Not detected, Influenza Type A (PCR) Not detected, Influenza Type B (PCR) Not detected, M. pneumoniae (PCR) Not detected, Parainfluenza 1 (PCR) Not detected, Parainfluenza 2 (PCR) Not detected, Parainfluenza 3 (PCR) Not detected, Parainfluenza 4 (PCR) Not detected, RSV (PCR) Not detected, Entero/Rhino (PCR) Not detected 12/03/20 03:25: Troponin I < 0.01 12/03/20 06:00: Sodium 138, Potassium 4.7, Chloride 103, Carbon Dioxide 37 H, Anion Gap 2.7 L, BUN 30 H, Creatinine 0.70 D, Estimated Creat Clear 55, Estimated GFR 85,
[2020-12-03 14:57] LABS: Microscopic, Urine URINE MICROSCOPIC (MICROSCOPIC)
[2020-12-03 15:05] LABS: Appearance,Urine CLEAR (Clear); Bilirubin,Urine Negative (Negative); Blood, Urine Negative (Negative); Color,Urine YELLOW (Yellow); Glucose,Urine (UA) Negative (Negative); Ketones,Urine Negative (Negative); Leukocyte Esterase,Urine Negative (Negative); Nitrate,Urine Negative (Negative); Protein,Urine Negative (Negative); Specific Gravity, Urine >= 1.030 (1.005-1.030); Urobilinogen,Urine 0.2 EU/dl (0.2)
--- NOTE | 2020-12-03 15:09 | INFXCTL.NOTE ---
AOX4 BUT DOES HAVE SOME EPISODES OF CONFUSION, SHE C/O PAIN WITH MOVEMENT BUT HAS OTHERWISE REMAINED COMFORTABLE T/O SHIFT, SHE WAS MEDICATED X2 WITH PRN MORPHINE WITH GOOD EFFECTIVENESS, ORDER OBTAINED FOR PT SEVERE ANXIETY EARLIER THIS SHIFT, ATIVAN 0.5MG GIVEN PER MAR WITH GOOD EFFECTIVENESS, ADEQUATE URINE OUTPUT THIS SHIFT, MCBRIDE CATH PLACED PER DR BHAKTA. SHE HAS REQUIRED O2 SUPPORT VIA NC AT 4LPM, SHE HAS NOT C/O N/V/D, TOLERATING PO INTAKE WELL, PT DAUGHTER/POA STATED THAT SHE HAD SOME QUESTIONS REGARDING PLANNED PROCEDURES SO DR VARGAS OFFICE WAS NOTIFIED. DNR PAPER WORK SIGNED AND VERIFIED WITH Sunday ABAD RN AND PLACED ON CHART, VITAL SIGNS HAVE REMAINED STABLE, WILL CONTINUE TO MONITOR.
[2020-12-03 15:16] LABS: Squamous Epithelial Cell,Urine Occasional #/hpf (0-5)
[2020-12-03 15:17] LABS: Bacteria,Urine Trace /lpf
--- NOTE | 2020-12-03 19:13 | PC.NURSE ---
CORBY CHILD (MERARY) CONTACTED VIA TELEPHONE AND CONSENTS TO PROCEDURE. TWO PERSON VERIFICATION KATE ROACH AND STEFFANIE KAUR.
--- NOTE | 2020-12-03 21:11 | PC.NURSE ---
RA SATS WERE 88%. PLACED PT BACK ON 4L NC
[2020-12-04] VITALS (27 sets, daily range): BP systolic 85–121; BP diastolic 44–90; PULSE 76–117; RESP 18–24; TEMP 36.2–43; O2SAT 89–96; BMI 20.3
--- NOTE | 2020-12-04 04:07 | PC.NURSE ---
SHIFT SUMMARY PTS LUNG SOUNDS ARE CLEAR WITH SATS MAINTAINED AT 95% OR ABOVE ON 4LPM VIA NC. PT IS ALERT AND ORIENTED X4. PT HAS COMPLAINED OF PAIN ONCE DURING THIS SHIFT WHICH WAS RELIEVED WITH PAIN MEDS. MCBRIDE IN PLACE URINE IS CLEAR AND YELLOW IN COLOR. PT IS VERY UNCOOPERATIVE NOT LETTING STAFF TO CARE FOR HER.
--- NOTE | 2020-12-04 07:55 | HMH.PNCARD ---
Subjective Date: 12/04/20 Time: 07:55 Principal diagnosis: Fall with wrist and hip fractures Interval history: 59 yo WF in bed in NAD. Pleasant but does not remember meeting any of the physicians yesterday. States she was awake all night. Denies any chest pain. Breathing unchanged per patient. Seems concerned that the nurse stopped some medication during the night and she even thought he stopped her oxygen despite showing her that it is still turned on. Exam Vital signs and Labs for Last 24 Hours: Temp Pulse Resp BP Pulse Ox 98.4 F 104 H 22 121/71 95 12/04/20 04:00 12/04/20 06:30 12/04/20 07:43 12/04/20 04:00 12/04/20 06:30 Laboratory Results - last 24 hr 12/03/20 06:35: Total Counted 100, Neutrophils % (Manual) 80 H, Lymphocytes % (Manual) 16, Monocytes % (Manual) 4, Platelet Estimate Slight increase, Hypochromasia 1+, Anisocytosis 1+ 12/03/20 12:30: Urine Color Yellow, Urine Appearance Clear, Urine pH 6.0, Ur Specific [place] >= 1.030, Urine Protein Negative, Urine Glucose (UA) Negative, Urine Ketones Negative, Urine Blood Negative, Urine Nitrate Negative, Urine Bilirubin Negative, Urine Urobilinogen 0.2, Ur Leukocyte Esterase Negative, Ur Squamous Epith Cells Occasional, Urine Bacteria Trace 12/04/20 05:45: Blood Type Confirm A Positive 12/04/20 05:52: Blood Type A Positive, Antibody Screen Negative, Crossmatch (AHG) See Detail I & O for Last 24 hours: Intake & Output 12/01/20 12/02/20 12/03/20 12/04/20 11:59 11:59 11:59 11:59 Intake Total 1000 / 1000 1110 / 1110 Output Total 2600 / 2600 Balance 1000 / 1000 -1490 / -1490 Weight 130 lb 137 lb 7 oz - *Routine Respiratory Exam Present: wheezes, diminished air movement Comments: Less wheezing noted this AM. - *Routine Neurological Exam Present: alert Progress Note: A&P (1) Hip fracture Status: Acute (2) Anemia Status: Acute (3) Breast cancer in female Status: Acute (4) COPD (chronic obstructive pulmonary disease) Status: Acute (5) Leukocytosis Status: Acute (6) Wrist fracture, right Status: Acute (7) Diastolic CHF Status: Acute Assessment and Plan for All Diagnoses:: Plan is for hip surgery today. Cardiac status stable. Diastolic dysfunction, acute on chronic with normal systolic EF. Continue to monitor I/O and use lasix PRN. Based on current data she has a net negative fluid status with a slight bump in BUN after lasix given yesterday. Chronic COPD on 4L of oxygen, defer to Pulmonary.
--- NOTE | 2020-12-04 08:48 | HMH.ACPN2 ---
Internal Medicine - PN: Subj *Date: 12/04/20 *Time: 08:48 Interval history: 59-year-old female with right hip fracture. Pleasant but confused this morning. Afebrile, hemodynamically stable. Tolerating 4 L nasal cannula oxygen which is her baseline O2 from home. Aside from right hip pain, no acute complaints. Exam Vital signs and Labs for Last 24 Hours: Temp Pulse Resp BP Pulse Ox 98.4 F 104 H 22 121/71 95 12/04/20 04:00 12/04/20 06:30 12/04/20 07:43 12/04/20 04:00 12/04/20 06:30 Laboratory Results - last 24 hr 12/03/20 06:35: Total Counted 100, Neutrophils % (Manual) 80 H, Lymphocytes % (Manual) 16, Monocytes % (Manual) 4, Platelet Estimate Slight increase, Hypochromasia 1+, Anisocytosis 1+ 12/03/20 12:30: Urine Color Yellow, Urine Appearance Clear, Urine pH 6.0, Ur Specific [place] >= 1.030, Urine Protein Negative, Urine Glucose (UA) Negative, Urine Ketones Negative, Urine Blood Negative, Urine Nitrate Negative, Urine Bilirubin Negative, Urine Urobilinogen 0.2, Ur Leukocyte Esterase Negative, Ur Squamous Epith Cells Occasional, Urine Bacteria Trace 12/04/20 05:45: Blood Type Confirm A Positive 12/04/20 05:52: Blood Type A Positive, Antibody Screen Negative, Crossmatch (AHG) See Detail I & O for Last 24 hours: Intake & Output 12/01/20 12/02/20 12/03/20 12/04/20 23:59 23:59 23:59 23:59 Intake Total 2110 / 2110 Output Total 1700 / 1700 900 / 900 Balance 410 / 410 -900 / -900 Weight 58.967 kg 59 kg 62.341 kg - Constitutional mild distress, thin, chronically ill appearing, cooperative - *Routine HEENT Exam Head: Present: normocephalic Eye: Present: EOMI, PERRL ENT: Present: mucous membranes moist - *Routine Neck Exam Present: supple. Absent: lymphadenopathy - *Routine Respiratory Exam Present: crackles, distant breath sounds. Absent: wheezes - *Routine Cardiovascular Exam Present: RRR - *Routine Abdominal Exam Present: soft, normoactive bowel sounds. Absent: tenderness Comments: protuberant - *Routine Extremities Exam Present: edema (trace). Absent: cyanosis, clubbing Comments: right leg shortened on exam - *Routine Skin Exam Present: warm. Absent: rash - *Routine Neurological Exam Present: alert To person. Confused with time and place. Keeps looking to nurse as though she is her daughter. Assessment and Plan (1) Hip fracture Status: Acute Qualifiers: Encounter type: initial encounter Fracture type: closed Laterality: right Qualified Code(s): S72.001A - Fracture of unspecified part of neck of right femur, initial encounter for closed fracture Category: Medical Code(s): S72.009A - Fracture of unspecified part of neck of unspecified femur, initial encounter for closed fracture (2) Anemia Status: Acute Qualifiers: Anemia type: unspecified type Qualified Code(s): D64.9 - Anemia, unspecified Category: Medical Code(s): D64.9 - Anemia, unspecified (3) Breast cancer in female Status: Acute Qualifiers: Breast location: unspecified site of breast Estrogen receptor status: unspecified Laterality: unspecified laterality Qualified Code(s): C50.919 - Malignant neoplasm of unspecified site of unspecified female breast Category: Medical Code(s): C50.919 - Malignant neoplasm of unspecified site of unspecified female breast (4) COPD (chronic obstructive pulmonary disease) Status: Acute Qualifiers: COPD type: unspecified COPD Qualified Code(s): J44.9 - Chronic obstructive pulmonary disease, unspecified Category: Medical Code(s): J44.9 - Chronic obstructive pulmonary disease, unspecified (5) Leukocytosis Status: Acute Qualifiers: Leukocytosis type: unspecified Qualified Code(s): D72.829 - Elevated white blood cell count, unspecified Category: Medical Code(s): D72.829 - Elevated white blood cell count, unspecified (6) Wrist fracture, right Status: Acute Qualifiers: Encou
[2020-12-04 09:05] LABS: Chloride 100 mmol/L (98-107); Sodium 136 mmol/L (136-145)
[2020-12-04 09:06] LABS: Basophils # 0.5 K/mm3 (0-0.2); Basophils % 1.3 % (0.1-2.0); Eosinophils # 0.2 K/mm3 (0.0-0.4); Eosinophils % 0.4 % (0.1-12.0); Hematocrit 28.7 % (37.0-47.0); Hemoglobin 8.9 g/dL (12.2-16.2); Lymphocytes # 1.7 K/mm3 (0.7-4.5); Lymphocytes % 4.1 % (10-50); Mean Corpuscular Hemoglobin 27.6 pg (27.0-31.2); Mean Platelet Volume 8.5 fl (7.4-10.4); Monocytes # 1.1 K/mm3 (0.1-1.0); Monocytes % 2.6 % (1.7-9.3); Neutrophils # 37.9 K/mm3 (1.8-7.8); Neutrophils % 91.6 % (37.0-80.0); Platelet Count 629 K/mm3 (142-424); Potassium 4.1 mmoL/L (3.5-5.1); Red Blood Count 3.22 M/mm3 (4.20-5.40)
[2020-12-04 09:08] LABS: Blood Urea Nitrogen 25 mg/dl (7-17); Creatinine Clearance Estimated 58 mL/min (50-200); Estimated Glomerular Filt Rate 85 ml/min (>60); GFR (African American) 103 ML/MIN (>60)
[2020-12-04 09:09] LABS: Anion Gap 4.1 mEq/L (5-15); Calcium 9.2 mg/dl (8.4-10.2); Carbon Dioxide 36 mmol/L (22.0-30.0); Glucose 82 mg/dl (74-100)
[2020-12-04 09:10] LABS: White Blood Count 41.4 K/mm3 (4.8-10.8)
[2020-12-04 09:11] LABS: MANUAL DIFFERENTIAL MANUAL DIFFERENTIAL (MANUAL DIFF)
--- NOTE | 2020-12-04 09:56 | HMH.PULMPN ---
Internal Medicine - PN: Subj *Date: 12/04/20 *Time: 09:56 Interval history: No acute respiratory events overnight. Exam - Constitutional Constitutional:: Present: no acute distress, comfortable - HENMT Exam HENMT: Present: normocephalic, atraumatic - Eye Exam Eyes:: Present: normal appearance both eyes and related structures - Neck Exam Neck:: Present: normal visual inspection - Respiratory Exam Respiratory:: Present: able to speak in complete sentences, no respiratory distress, rales - Cardiovascular Exam Cardiac:: Present: S1, S2 - GI Exam GI:: Present: soft - Skin Exam Skin: Present: warm, no rash - Neurological Exam Neurological: Present: alert, awake, normal cognition - Extremities Exam Extremities: Present: no cyanosis, no clubbing Assessment and Plan (1) Breast cancer in female Status: Acute Qualifiers: Breast location: unspecified site of breast Estrogen receptor status: unspecified Laterality: unspecified laterality Qualified Code(s): C50.919 - Malignant neoplasm of unspecified site of unspecified female breast Category: Medical Code(s): C50.919 - Malignant neoplasm of unspecified site of unspecified female breast (2) COPD (chronic obstructive pulmonary disease) Status: Acute Qualifiers: COPD type: unspecified COPD Qualified Code(s): J44.9 - Chronic obstructive pulmonary disease, unspecified Category: Medical Code(s): J44.9 - Chronic obstructive pulmonary disease, unspecified (3) HAP (hospital-acquired pneumonia) Status: Acute Category: Medical Code(s): J18.9 - Pneumonia, unspecified organism; Y95 - Nosocomial condition - Assessment and plan all Dx Assessment and Plan for all problems:: #COPD: # HAP #Hip fracture 59-year-old COPD long-term oxygen therapy at 4 L elderly history of asthma presented with history of fall. Further questioning patient denies any fevers or chills or worsening productive phlegm. Auscultation bilateral decreased breath sounds with significant wheezing. Chest x-ray bilateral lower lobe effusions with questionable atelectasis of the right lower lobe. Patient also history of stage IV breast cancer diagnosed in 2017 status post bilateral Pleurx catheter placed that was removed 2 years ago and patient was told to have loculated effusion. It is unclear whether effusions noted are a part of her prior loculated effusions or acute effusion however given her baseline respiratory status I do not think these effusions will preclude her from proceeding with the surgery at this point. Patient leukocytosis continued to worsen, after extensive discussion with the patient family, patient was told to have leukocytosis around 30,000 in July and has been progressively getting worse since then. Patient also history of C. difficile diarrhea however she denies any diarrhea at this point of time discussed with the primary team and had been working in the records determine the etiology of leukocytosis. Patient was initiated on treatment for hospital-acquired pneumonia yesterday. Other source of sepsis cannot be completely ruled out will recommend sepsis work-up until further information obtained. Plan: - We will continue nebulization therapy at DuoNebs every 6 hours along with budesonide every 12 to optimize her pulmonary status. - Pulmonary will continue to follow the patient. - Continue vancomycin and cefepime for possible HAP (Patient on steroids and levofloxacin for her recent presumed pneumonia from an outside hospital.) - Nasal MRSA screen, sputum cultures #Thank you for involving pulmonary in this patient care. We will continue to follow.
[2020-12-04 11:01] LABS: Peripheral Smear Review Scanned Results
--- NOTE | 2020-12-04 14:00 | PC.NURSE ---
Pt down to OR w/ [facility] and Kirk @ [phone]
--- NOTE | 2020-12-04 14:16 | P.PN_ITS ---
[facility] Anesthesia Checklist - Patient Identification Patient Identification: Arm Band - Structural Data Admitted From: Home Planned Operative Procedure/s: Bipolar hip Consent for Planned Operative Procedure(s) Verified: Yes - NPO Status Verified Time NPO: 00:00 - Airway Assessment C-Spine Mobility Assessed: Yes TMJ Mobility Assessed: Yes - Neurological Assessment Level of Consciousness: Awake, Alert Hx Seizures: No Numbness or tingling in extremities: No - Anesthesia Plan Anesthesia Risk discussed: Yes Anesthesia Plan: Verified ASA Class: III Anesthesia Type: MAC w/Spinal [facility] History I have reviewed the patient's past medical history: Yes Medical History: Reports:: Cancer (Lung and metastatic breast cancer), Lung Disease Denies:: Diabetes Mellitus Type 1, Diabetes Mellitus Type 2 *Have you ever received a pneumonia vaccine?: Yes *Have you received a flu vaccine this season?: Yes Anesthesia experience/problems:: None - *Social History Last grade of school completed: High school graduate Smoking Status: Current every day smoker Tobacco Type: cigarettes # Packs/Day (cigarettes): 1 Alcohol Intake: never Substance Use Type: denies use *Occupational Status:: retired *Travel in the last 8 weeks: None Family Hx:: No significant family history
[2020-12-04 15:34] LABS: Lymphocytes % 8 % (10-50); Monocytes % 2 % (2-9); Neutrophils % 90 % (42-76); Platelet Estimate Moderate Increase; RBC Morphology Normal; Total Cells Counted 100
--- NOTE | 2020-12-04 18:22 | HMH.ANESI ---
[facility] Anesthesia Record Part I Intake, IV Amount: 800 Estimated blood loss (mL): 400 Urine output (mL): 500 Blood Pressure: 120/90 SaO2: 93 Pulse Rate: 114 Respiratory Rate: 24 Temperature: 97.2 F Patient is:: Awake, Stable Stable to PACU at:: 18:18
--- NOTE | 2020-12-04 18:43 | XR_ITS ---
PROCEDURE: XR HIP RT 2-3V W/PELVIS CLINICAL INDICATION: s/p R hip susana Follow-up hip replacement COMPARISON: CR XR HIP RT 2-3V W/PELVIS from 12/03/2020 FINDINGS: Status post right hip hemiarthroplasty placement with good alignment and no obvious orthopedic complications. There is a small amount of postsurgical gas. Berrios catheter is present IMPRESSION: Status post right hip hemiarthroplasty placement with good alignment Dictated by: Talon Adkins MD 12/05/2020 06:05 Talon Adkins MD in [facility] 12/05/2020 06:05
--- NOTE | 2020-12-04 19:04 | HMH.OPNOTE ---
Date of procedure: 12/04/20 Pre-op Diagnosis:: R femoral neck fracture Post-op Diagnosis:: R femoral neck fracture Procedure performed:: R hip hemiarthroplasty Surgeon:: Marianna Franco MD Finger Lift Operator(s):: Elise Becerra HYDROLOGY TECHNICIAN:: Other (Marky Novak) Anesthesia: MAC, spinal Estimated blood loss (mL): 400 Clinical Note:: 59-year-old female admitted early 12/03/20 with an injury to the right hip and right wrist. She was in her home walking to the freezer to get some ice cream when she fell. She was unable to walk after the fall and was taken to the emergency department, where right wrist and right hip fractures were identified. She denies any chest pain or shortness of breath prior to the fall, and does not recall a pop or snap in the hip prior to falling; it is unknown if the hip fracture occurred prior to or after the fall. She has never injured this hip before. She has a history of oxygen dependent COPD and metastatic breast cancer. Chemotherapy is ongoing; mets were found to the lung and lymph nodes. She has a right chest Port-A-Cath which is accessed for her chemo. Her son says she was recently hospitalized last week due to a suspected Covid vaccine adverse reaction described as disorientation and shortness of breath. She is currently on 4 L of home oxygen via nasal cannula. She typically ambulates around her home without any issues and does not require the use of a walker or cane. However, her community ambulation is limited and her son says her walking tolerance is probably around 50 feet. The R wrist was found to have a non-displaced, extra-articular distal radius fracture that is being treated non-operatively. I discussed treatment options regarding the hip with the patient and her son, who is at bedside. We discussed both operative and nonoperative treatments, and if medically stable for surgery I recommend surgical intervention. I recommend hemiarthroplasty with a cemented femoral stem; I discussed the difference between total hip arthroplasty and hemiarthroplasty, as well as the difference between press fit and cemented stems. I believe cemented susana would be the best option for this patient, who is in poor health and relatively low physical demand. I discussed the risks of surgery with the patient including but not limited to: bleeding, infection, possible need for transfusion, risk of intra-operative fracture, need for post-operative hip precautions and abduction pillow with posterior surgical approach, risk of persistent pain and/or limp, possible need for continued use of walker/cane permanently, and risk of anesthesia including heart attack, stroke and . The patient vocalized understanding and provided informed consent for the procedure. I also discussed the diagnosis and plan with the patient's daughter Delores, both via telephone and in person; she is the patient's POA. Operative findings:: IMPLANTS: [employer] Bipolar Hemiarthroplasty -- Synergy size 15 cemented stem, high offset 28mm ID/46mm OD Bipolar head +0 Operative note:: The patient was identified in preoperative holding and the R hip signed by myself. She was then taken to the operating room where she was transferred to the operative table and 1g Ancef was infused intravenously. Spinal anesthesia with MAC was then administered. The patient was then placed into the left lateral decubitus position with an axillary roll, arms on arm boards supported with pillows, and all bony prominences including the left lower extremity well-padded. SCD was placed on the left lower extremity. The right hip was then prepped and draped in the usual sterile fashion. Timeout was performed, identifying the correct patient, correct procedure and correct site. The procedure was begun by making a longitudinal, curvilinear incision over the posterolateral aspect the the R hip, centered over the greater trochanter. Subcutaneous tissue was dissected with cautery until fascia was encountered. The
--- NOTE | 2020-12-04 19:04 | HMH.ORTHPN ---
Subjective Date: 12/04/20 Time: 19:00 Principal diagnosis: Fall with wrist and hip fractures Interval history: The patient underwent R hip hemiarthroplasty this afternoon under spinal anesthetic without complication. EBL 400cc. PN: Obj Ex Vital signs: Temp Pulse Resp BP Pulse Ox 97.3 F L 115 H 24 121/52 L 94 L 12/04/20 18:41 12/04/20 18:41 12/04/20 18:41 12/04/20 18:41 12/04/20 18:41 - Constitutional no acute distress - Routine HEENT Exam Head: Present: normocephalic Eye: Present: EOMI ENT: Present: mucous membranes moist - Routine Neck Exam Present: trachea midline - Routine Respiratory Exam Absent: respiratory distress - Routine Cardiovascular Exam Present: RRR - Routine Abdominal Exam Present: soft. Absent: distended - Routine Extremities Exam Comments: R hip dressing c/d/i, no drainage motor/sensory below waist impaired; spinal remains in effect palpable pedal pulses RLE, foot pink/warm with BCR - Routine Skin Exam Present: warm - Urinary Catheter Management Berrios Cath placed during this visit: yes Urethral indwelling: Yes Reason for continuing: Surgical procedure Insertion date: 12/03/20 Progress Note: A&P (1) Breast cancer in female Status: Acute (2) COPD (chronic obstructive pulmonary disease) Status: Acute (3) HAP (hospital-acquired pneumonia) Status: Acute Assessment and Plan for All Diagnoses:: 59yo F with metastatic breast cancer and COPD on home oxygen; s/p fall 12/02/20 with displaced R femoral neck fracture and non-displaced R distal radius fracture --> POD 0 s/p R hip hemiarthroplasty -- may be OOB as tolerated with assist; WBAT RLE -- posterior hip precautions, hip abduction pillow while in bed -- PT/OT to eval -- SCD LLE -- ice pack R hip as needed -- DVT prophy: lovenox to start tomorrow -- did not order continuing antibiotic prophy; continue vanc/cefepime as ordered -- pain control; po/IV meds ordered PRN -- care management consult for dispo planning -- medical management per Dr. Montanez/Vic
--- NOTE | 2020-12-04 19:05 | PC.NURSE ---
PT BACK TO FLOOR AT THIS TIME.
[2020-12-04 19:29] LABS: Hematocrit 26.1 % (37.0-47.0); Hemoglobin 8.3 g/dL (12.2-16.2)
--- NOTE | 2020-12-04 20:05 | PC.NURSE ---
Pt gone majority of shift, brought back to floor from PACU @ 1905. Pt on simple mask, sat mid 90's. Bedside report given to JASON Henry.
[2020-12-05] VITALS (31 sets, daily range): BP systolic 101–128; BP diastolic 53–92; PULSE 70–115; RESP 16–24; TEMP 36.7–37.6; O2SAT 4–98; BMI 20.7
--- NOTE | 2020-12-05 06:27 | PC.NURSE ---
patient received 2 units PRB with no adverse reaction note at this time. No s/s of acute distress noted at this time, call light within reach, bed at lowest level; will continue to monitor.
--- NOTE | 2020-12-05 06:42 | PC.NURSE ---
PATIENTS WEIGHED WITH ABDUCTION PILLOW
[2020-12-05 07:01] LABS: Chloride 99 mmol/L (98-107); Potassium 4.4 mmoL/L (3.5-5.1); Sodium 135 mmol/L (136-145)
[2020-12-05 07:04] LABS: Anion Gap 8.4 mEq/L (5-15); Blood Urea Nitrogen 24 mg/dl (7-17); Carbon Dioxide 32 mmol/L (22.0-30.0); Creatinine Clearance Estimated 59 mL/min (50-200); Estimated Glomerular Filt Rate 85 ml/min (>60); GFR (African American) 103 ML/MIN (>60)
[2020-12-05 07:10] LABS: Glucose 113 mg/dl (74-100)
--- NOTE | 2020-12-05 07:29 | SW/DCPLANNER ---
Addendum entered by Meredith Barnes 12/10/20 08:40: PATIENT IS DISCHARGING TO [facility] THIS AM PER DR GRAY... HE STATED IF SHE IS NOT ABLE TO REHAB SHE MAY BE A GOOD CANDIDATE FOR HOSPICE SERVICES, I SHARED THIS WITH [facility]... Addendum entered by Meredith Barnes 12/07/20 14:16: PATIENTS TESTS INDICATED SHE IS MEDICALLY READY TO DISCHARGE TO [facility]... I HAVE NOTIFIED [facility] GRAY MAY DISCHARGE HER [facility] (SAT)... SHE SAID IT IS OK FOR HER TO COME OVER THE WEEKEND...PATIENT HAS FAMILY THAT WORK THERE... Addendum entered by Meredith Barnes 12/05/20 10:11: RECEIVED A CALL THAT PATIENT HAS BEEN ACCEPTED TO [facility] FOR [facility]... I WILL LET DR BHAKTA KNOW AND DR GRAY WHO WILL FOLLOW HER THERE ALSO... Original Note: RECEIVED REFERRAL FOR THIS PATENT STATING DAUGHTER WORKS AT [employer] AND WANTS HER MOTHER TO DO HER SKILLED REHAB THERE... I HAVE SENT IT THIS MORNING, PATIENT IS NOT READY TO DISCHARGE TODAY BUT COULD BE READY SOON [facility] OR THE END OF THE WEEK... WAITING ON A RETURN CALL FROM [facility] TO SEE IF ACCEPTED...
[2020-12-05 07:43] LABS: Basophils # 0.3 K/mm3 (0-0.2); Basophils % 0.6 % (0.1-2.0); Eosinophils # 0.1 K/mm3 (0.0-0.4); Eosinophils % 0.1 % (0.1-12.0); Hematocrit 29.8 % (37.0-47.0); Lymphocytes # 1.3 K/mm3 (0.7-4.5); Lymphocytes % 2.6 % (10-50); Mean Corpuscular HGB Conc 31.7 g/dL (31.8-35.4); Mean Corpuscular Hemoglobin 27.6 pg (27.0-31.2); Mean Corpuscular Volume 87.1 fl (81-99); Mean Platelet Volume 8.5 fl (7.4-10.4); Monocytes # 1.2 K/mm3 (0.1-1.0); Monocytes % 2.5 % (1.7-9.3); Neutrophils # 45.6 K/mm3 (1.8-7.8); Neutrophils % 94.2 % (37.0-80.0); Platelet Count 477 K/mm3 (142-424); Red Blood Count 3.42 M/mm3 (4.20-5.40); Red Cell Distribution Width 16.7 % (11.5-17.5)
[2020-12-05 07:45] LABS: MANUAL DIFFERENTIAL MANUAL DIFFERENTIAL (MANUAL DIFF); White Blood Count 48.5 K/mm3 (4.8-10.8)
--- NOTE | 2020-12-05 08:09 | XR_ITS ---
PROCEDURE: XR KUB CLINICAL INDICATION: abd distension COMPARISON: No exams were available for comparison FINDINGS: Nonspecific nonobstructive bowel gas pattern. Berrios catheter is present. There is a mild amount of retained colonic feces. Status post right hip hemiarthroplasty with some postsurgical gas noted. Minimal lumbar curvature convex left. No obvious renal calculi. IMPRESSION: Nonspecific findings with mild amount of retained colonic feces. Dictated by: Talon Adkins MD 12/05/2020 08:49 Talon Adkins MD in [facility] 12/05/2020 08:49
--- NOTE | 2020-12-05 08:09 | XR_ITS ---
PROCEDURE: XR CHEST PORTABLE CLINICAL HISTORY: dyspnea COMPARISON: CR CXR2V XR chest 2V from 11/11/2018 CR XR CHEST AP from 12/02/2020 CR XR CHEST PORTABLE from 12/03/2020 FINDINGS: Cardiomegaly with pulmonary venous congestion and bilateral pleural effusions with some interstitial edema consistent with congestive heart failure which appears slightly worse. Right IJ MediPort catheter is present with the tip in the region the SVC. Increased density is present in the lung bases and may be related atelectasis and or infiltrate unchanged. IMPRESSION: CHF slightly worse with bilateral effusions and unchanged bibasilar airspace disease Dictated by: Talon Adkins MD 12/05/2020 08:47 Talon Adkins MD in [facility] 12/05/2020 08:47
--- NOTE | 2020-12-05 08:20 | HMH.ACPN2 ---
Internal Medicine - PN: Subj *Date: 12/05/20 *Time: 08:20 Interval history: Patient is disoriented to place and time this morning, continues to call out for her mother. Is able to respond to questions about pain but quickly becomes disoriented and somewhat delirious in regards to her speech. Nursing reports that she was awake through the night and disoriented most of the time. She tells me that she is aware it is her birthday but that she is 31 years old. Exam Vital signs and Labs for Last 24 Hours: Temp Pulse Resp BP Pulse Ox 99.5 F 86 18 115/67 97 12/05/20 06:14 12/05/20 06:59 12/05/20 06:14 12/05/20 06:14 12/05/20 06:59 Laboratory Results - last 24 hr 12/04/20 05:52: Blood Type A Positive, Antibody Screen Negative, Crossmatch (AHG) See Detail 12/04/20 05:52: WBC 41.4 H* D, RBC 3.22 L, Hgb 8.9 L, Hct 28.7 L, MCV 89.0, MCH 27.6, MCHC 31.0 L, RDW 17.0, Plt Count 629 H, MPV 8.5, Neut % (Auto) 91.6 H, Lymph % (Auto) 4.1 L, Stark % (Auto) 2.6, Eos % (Auto) 0.4, Baso % (Auto) 1.3, Neut # (Auto) 37.9 H, Lymph # (Auto) 1.7, Stark # (Auto) 1.1 H, Eos # (Auto) 0.2, Baso # (Auto) 0.5 H, Total Counted 100, Neutrophils % (Manual) 90 H, Lymphocytes % (Manual) 8 L, Monocytes % (Manual) 2, Platelet Estimate Moderate increase, RBC Morphology Normal 12/04/20 05:52: Sodium 136, Potassium 4.1, Chloride 100, Carbon Dioxide 36 H, Anion Gap 4.1 L, BUN 25 H, Creatinine 0.70, Estimated Creat Clear 58, Estimated GFR 85, Est GFR ( Amer) 103, Glucose 82, Calcium 9.2 12/04/20 19:20: Hgb 8.3 L, Hct 26.1 L 12/05/20 06:15: WBC 48.5 H*, RBC 3.42 L, Hct 29.8 L, MCV 87.1, MCH 27.6, MCHC 31.7 L, RDW 16.7, Plt Count 477 H, MPV 8.5, Neut % (Auto) 94.2 H, Lymph % (Auto) 2.6 L, Stark % (Auto) 2.5, Eos % (Auto) 0.1, Baso % (Auto) 0.6, Neut # (Auto) 45.6 H, Lymph # (Auto) 1.3, Stark # (Auto) 1.2 H, Eos # (Auto) 0.1, Baso # (Auto) 0.3 H 12/05/20 06:15: Sodium 135 L, Potassium 4.4, Chloride 99, Carbon Dioxide 32 H, Anion Gap 8.4, BUN 24 H, Creatinine 0.70, Estimated Creat Clear 59, Estimated GFR 85, Est GFR ( Amer) 103, Glucose 113 H, Calcium 9.0 I & O for Last 24 hours: Intake & Output 12/02/20 12/03/20 12/04/20 12/05/20 11:59 11:59 11:59 11:59 Intake Total 1000 / 1000 1110 / 1110 1020 / 1020 Output Total 2600 / 2600 1300 / 1300 Balance 1000 / 1000 -1490 / -1490 -280 / -280 Weight 130 lb 137 lb 7 oz 140 lb 2 oz Microbiology Reports for the Last 24 Hours: Microbiology 12/03/20 09:45 Sputum - Expectorated Sputum Gram Stain - Final Narrative: Patient appears pale. Breathing is more shallow than yesterday and is somewhat more tachypneic. Does not sound wheezy or rattly on exam but has rhonchorous air sounds in all lung boyd. Heart rate regular. Abdomen is slightly more distended than yesterday. Berrios catheter appears to be in good position and is draining clear yellow urine. Extremities have no edema, she is able to move her feet bilaterally. Pulses are diminished but present in the feet. Hands are without edema. Neurologic exam is nonfocal other than her disorientation and delirium. Assessment and Plan (1) Breast cancer in female Status: Acute Qualifiers: Breast location: unspecified site of breast Estrogen receptor status: unspecified Laterality: unspecified laterality Qualified Code(s): C50.919 - Malignant neoplasm of unspecified site of unspecified female breast Category: Medical Code(s): C50.919 - Malignant neoplasm of unspecified site of unspecified female breast (2) COPD (chronic obstructive pulmonary disease) Status: Acute Qualifiers: COPD type: unspecified COPD Qualified Code(s): J44.9 - Chronic obstructive pulmonary disease, unspecified Category: Medical Code(s): J44.9 - Chronic obstructive pulmonary disease, unspecified (3) HAP (hospital-acquired pneumonia) Status: Acute Category: Medical Code(s): J18.9 - Pneumonia, unspecified organism; Y95 - Nosocomial condition
[2020-12-05 08:48] LABS: Anisocytosis 1+; Hypochromasia 1+; Lymphocytes % 4 % (10-50); Monocytes % 2 % (2-9); Neutrophils % 91 % (42-76); Platelet Estimate Normal; Total Cells Counted 100
[2020-12-05 09:14] LABS: Hemoglobin 9.5 g/dL (12.2-16.2)
--- NOTE | 2020-12-05 10:03 | HMH.OTEV ---
OT Inpatient Evaluation Rehab OT IP Evaluation Start: 12/04/20 18:51 Freq: ONCE Status: Complete Protocol: Document 12/05/20 09:57 JANNET (Rec: 12/05/20 10:03 JANNET [id number]) Rehab OT IP Assessment Subjective History Date of procedure: 12/04/20 Pre-op Diagnosis:: R femoral neck fracture Post-op Diagnosis:: R femoral neck fracture Procedure performed:: R hip hemiarthroplasty Surgeon:: Marianna Franco MD [employer] Architect(s):: Elise Becerra PANEL EDGE SEALER:: Other (Marky Novak) Anesthesia: MAC, spinal Estimated blood loss (mL): 400 Clinical Note:: 59-year-old female admitted early 12/03/20 with an injury to the right hip and right wrist. She was in her home walking to the freezer to get some ice cream when she fell. She was unable to walk after the fall and was taken to the emergency department, where right wrist and right hip fractures were identified. She denies any chest pain or shortness of breath prior to the fall, and does not recall a pop or snap in the hip prior to falling; it is unknown if the hip fracture occurred prior to or after the fall. She has never injured this hip before. She has a history of oxygen dependent COPD and metastatic breast cancer. Chemotherapy is ongoing; mets were found to the lung and lymph nodes. She has a right chest Port-A-Cath which is accessed for her chemo. Her son says she was recently hospitalized last week due to a suspected Covid vaccine adverse reaction described as disorientation and shortness
--- NOTE | 2020-12-05 10:48 | HMH.PULMPN ---
Internal Medicine - PN: Subj *Date: 12/05/20 *Time: 10:48 Interval history: No acute respiratory vents overnight. Patient continued to remain on 4 L nasal cannula. Exam - Constitutional Constitutional:: Absent: comfortable Comment:: Patient appeared to be in distress - HENMT Exam HENMT: Present: normocephalic, atraumatic - Eye Exam Eyes:: Present: normal appearance both eyes and related structures - Neck Exam Neck:: Present: normal visual inspection - Respiratory Exam Respiratory:: Present: able to speak in complete sentences, crackles, wheezing Comments: Appeared to be in mild respiratory distress - Cardiovascular Exam Cardiac:: Present: S1, S2 - GI Exam GI:: Present: soft - Skin Exam Skin: Present: warm, no rash - Neurological Exam Neurological: Present: awake. Absent: alert, normal cognition, oriented X3 - Extremities Exam Extremities: Present: no cyanosis, no clubbing, edema Assessment and Plan (1) COPD (chronic obstructive pulmonary disease) Status: Acute Qualifiers: COPD type: unspecified COPD Qualified Code(s): J44.9 - Chronic obstructive pulmonary disease, unspecified Category: Medical Code(s): J44.9 - Chronic obstructive pulmonary disease, unspecified (2) HAP (hospital-acquired pneumonia) Status: Acute Category: Medical Code(s): J18.9 - Pneumonia, unspecified organism; Y95 - Nosocomial condition - Assessment and plan all Dx Assessment and Plan for all problems:: #COPD: # HAP #Hip fracture 59-year-old COPD long-term oxygen therapy at 4 L elderly history of asthma presented with history of fall. Further questioning patient denies any fevers or chills or worsening productive phlegm. Auscultation bilateral decreased breath sounds with significant wheezing. Chest x-ray bilateral lower lobe effusions with questionable atelectasis of the right lower lobe. Patient also history of stage IV breast cancer diagnosed in 2017 status post bilateral Pleurx catheter placed that was removed 2 years ago and patient was told to have loculated effusion. It is unclear whether effusions noted are a part of her prior loculated effusions or acute effusion however given her baseline respiratory status I do not think these effusions will preclude her from proceeding with the surgery at this point. Patient completed her orthopedic surgery. Appeared to be in mild respiratory distress compared to yesterday with stable oxygen requirements. Appeared to be volume overloaded with worsening lower extremity edema. We will proceed with a dose of Lasix. Patient continued to receive vancomycin and cefepime for possible hospital-acquired pneumonia. Leukocytosis continued to improve. Primary team work to obtaining the records and also evaluating the patient for other possible sources of sepsis. Patient mentation continued to worsen patient appeared to be more delirious today. Oxygen saturations remain greater than 90% with stable oxygen recommended 4 L. Etiology of this patient's acute urine is likely secondary to hospital injury/pain medication. The possibility of brain mets cannot be completely ruled out, primary team to obtain records for further evaluation. Plan: - Incentive Spirometry - F/U ABG - We will continue nebulization therapy at [facility] every 6 hours along with budesonide every 12 to optimize her pulmonary status. - Pulmonary will continue to follow the patient. - Continue vancomycin and cefepime for possible HAP (Patient on steroids and levofloxacin for her recent presumed pneumonia from an outside hospital.) - Nasal MRSA screen, sputum cultures - Strict aspiration precautions #Thank you for involving pulmonary in this patient care. We will continue to follow.
[2020-12-05 11:03] LABS: ABG Base Excess 5.9 mmol/L (-2.4-2.3); ABG HCO3 29.8 mmhg (22.0-26.0); ABG Oxygen Saturation 95 % (90-100); ABG PCO2 43.1 mmhg (35.0-45.0); ABG PH 7.46 mmol/L (7.35-7.45); ABG PO2 68.7 mmhg (80-100); ABG TCO2 31.1 mmhg (23-27)
[2020-12-05 11:09] LABS: Allen's Test Acceptable; Oxygen 4 LPM NC %; Source Left Brachial
--- NOTE | 2020-12-05 12:01 | HMH.ORTHPN ---
Subjective Date: 12/05/20 Time: 11:00 Principal diagnosis: Fall with wrist and hip fractures Interval history: No acute events reported overnight. The patient has been very confused since surgery and is not currently oriented to person, place or time. Her daughter says she has been calling out for the cat. She has not been able to participate in physical therapy due to her mental status and has been quite agitated. She has not been able to take oral medications and has spit them out, but Risperdal was able to be taken and this appears to be helping calm her a bit. Vitals are stable. She was hypotensive last night, which her daughter says is normal for her. She received blood overnight due to acute blood loss anemia from surgery, hemoglobin 9.5 this morning. PN: Obj Ex Vital signs: Temp Pulse Resp BP Pulse Ox 98.2 F 114 H 16 126/69 4 L 12/05/20 08:00 12/05/20 10:33 12/05/20 08:00 12/05/20 08:00 12/05/20 08:00 - Constitutional no acute distress, average body habitus - Routine HEENT Exam Head: Present: normocephalic Eye: Present: EOMI ENT: Present: mucous membranes moist - Routine Neck Exam Present: trachea midline - Routine Respiratory Exam Absent: respiratory distress - Routine Cardiovascular Exam Present: RRR - Routine Abdominal Exam Present: soft - Routine Extremities Exam Comments: R hip dressing c/d/i, no strikethrough +DF/PF/EHL RLE SILT distally RLE palpable pedal pulses RLE, foot pink/warm R calf soft, non-tender - Routine Skin Exam Present: warm - Routine Neurological Exam Present: altered mental status, moving all extremities, normal tone. Absent: sensory deficit, motor deficit - Urinary Catheter Management Berrios Cath placed during this visit: yes Urethral indwelling: Yes Reason for continuing: Measure accurate output Insertion date: 12/03/20 Progress Note: A&P (1) COPD (chronic obstructive pulmonary disease) Status: Acute (2) HAP (hospital-acquired pneumonia) Status: Acute (3) Acute delirium Status: Acute (4) Anemia Status: Acute (5) Breast cancer in female Status: Acute (6) Hip fracture Status: Acute (7) Leukocytosis Status: Acute (8) Wrist fracture, right Status: Acute Assessment and Plan for All Diagnoses:: 59yo F with metastatic breast cancer and COPD on home oxygen; s/p fall 12/02/20 with displaced R femoral neck fracture and non-displaced R distal radius fracture --> POD 1 s/p R hip hemiarthroplasty -- continue wrist brace R wrist, minimal WB <1-2lb -- may be OOB as tolerated with assist; WBAT RLE -- posterior hip precautions, hip abduction pillow while in bed -- PT/OT to eval -- SCD LLE -- ice pack R hip as needed -- DVT prophy: lovenox to start today -- continue antibiotics per PCP/pulmonary -- pain control; po/IV meds ordered PRN -- care management consult for dispo planning -- has bed at [facility] when ready for d/c -- medical management per Dr. Montanez/Vic
--- NOTE | 2020-12-05 13:59 | HMH.PTEV ---
Physical Therapy Evaluation Rehab PT IP Evaluation Start: 12/04/20 18:51 Freq: ONCE Status: Active Protocol: Document 12/05/20 13:52 PWJARET (Rec: 12/05/20 13:58 [email or web address] [id number]) Subjective/History History History this is the initial IP PT evaluation for Laila Winter . Pt is a 60 y/o female admitted to [facility] s/p mechanical fall at home. Pt suffered Non displaced distal radius fracture and R femoral neck fracture. Pt had R hip arthroplasty and R wrist non- operative bracing. Pt has active cancer, active metasteses and COPD - O2 home dependant - pt lives w/ family rotating in to check on her per daughter in room during time of evaluation Subjective Subjective pt confused unable to answer question coherently - unable to state name, burthday, place , year or situation - pt states she was at [place] [facility] PT IP Eval Objective Appearance Patient Behavior Guarded,Resistive to Care, Confused Difficulty following instructions severe Speech Pattern Clear,Inappropriate Ambulation Patient Able to Ambulate No Balance Ability to Arise Unable Sitting Balance Steady, safe Standing Balance Unsteady Dynamic Sitting Balance Ability Poor Transfers Bed Transfer Ability Moderate x 2 (50% assist) Rehab PT IP prob,goals,plan Problems Date of Evaluation: 12/05/20 PT IP Problems Bed Mobility,Transfers,Gait, Balance,Self care,Safety Rehab Potential Rehab Potential Fair Equipment Needs Assistive Devices Platform Walker Plan PT Intervention Plan Bed Mobility,Transfers,Gait, Balance,Self care,Safety, Therapeutic Exercise PT Plan Frequency BID Duration LOS Discharge Goals Bed Transfer Ability Moderate x 2 (50% assist) Sit to Stand Chair Transfer Ability Maximum x 1 (75% assist) Discharge Plan PT Discharge Plan Pt to need SNF placement for skilled therapy to return to PLOF. W/out skilled therapy
--- NOTE | 2020-12-05 14:10 | PC.NURSE ---
Pt has been confused t/o shift. She has been unable to tell me name, birthday, date, etc... She has yelled out most of the morning. She appears agitated, resistant to care, and unwilling to follow commands. I gave her her morning meds and she spit them them out. She would then ask for them again but would spit them back out when I gave them to her. She did this multiple times. She eventually swallowed her risperidone with a teaspoon of applesauce. On morning assessment pt had wheezes and rhonchi. On reassessment this afternoon only occasional rhonchi is heard. No audible wheezes heard. She remains on 4L NC with O2 sats > 95%. Bowel sounds are hypoactive x4. Abdomen is round and distended. Her curran is currently draining to gravity at the bedside. It will be removed when UOP slows. It was kept in place for accurate I's and O's as pt has had 40 mg of lasix this morning. 1100mls of urine out thus far. This approved per Dr Franco. Dressing to her right hip is clean, dry and intact. Ice pack to right hip. Abduction pillow is in place. Distal pulses +1. Toes are warm and pink. She has a brace to her right wrist. Bruising noted to most of right hand/wrist/arm. Dressing to rt elbow is clean dry and intact. Will continue to monitor.
--- NOTE | 2020-12-05 14:13 | DIET.NUTRFU ---
PO intakes sporadic dt AMS- ~50%. Supplements added to diet order BID. Encouragement/cueing at meal times and replacement meal/snack offers from nursing appreciated.
--- NOTE | 2020-12-05 16:16 | PC.NURSE ---
Trash and dirty linens pulled
--- NOTE | 2020-12-05 18:54 | PC.NURSE ---
2050 mls of urine out this shift
[2020-12-06] VITALS (9 sets, daily range): BP systolic 113–138; BP diastolic 52–70; PULSE 105–120; RESP 18–25; TEMP 36.3–37.2; O2SAT 93–99
--- NOTE | 2020-12-06 03:56 | PC.NURSE ---
shift summary pts lung sounds are diminished with sats maintained 90% or above on 4LPM via NC, with a rate ranging from 20-24.pt is alert and can tell her name but is confused unable to communicate needs. pt has a curran in place with clear yellow in color urine. pts surgical site dressing is clean, dry, and intact.
--- NOTE | 2020-12-06 07:42 | P.PN_ITS ---
[facility] Anesthesia Record Part II Discharge Time: 18:41 Destination: Second Floor PACU nurse assessment reviewed?: Yes Patient Condition:: Good Anesthesia Complications:: None Swallowing reflex intact?: Yes Cyanosis?: No Blood Pressure: 121/52 Pulse Rate: 115 Temperature: 97.3 F Mental Status: Confused and Disoriented Pain level:: 0 Nausea and/or vomitting:: None Intake, IV Amount: 800
--- NOTE | 2020-12-06 08:08 | PC.NURSE ---
Yash not dc'd per Dr Ho
--- NOTE | 2020-12-06 08:13 | HMH.ACPN2 ---
Internal Medicine - PN: Subj *Date: 12/06/20 *Time: 08:13 Interval history: Overnight patient did a little better with scheduled respite all because of her acute delirium superimposed on chronic dementia changes. Her family notes that she is occasionally disoriented at home but certainly not to the degree that she is in the hospital here. She responded well to Lasix and is breathing much more easily with oxygen therapy. Exam Vital signs and Labs for Last 24 Hours: Temp Pulse Resp BP Pulse Ox 98.4 F 110 H 19 113/68 96 12/06/20 07:46 12/06/20 07:46 12/06/20 07:46 12/06/20 07:46 12/06/20 07:46 Laboratory Results - last 24 hr 12/05/20 06:15: Hgb 9.5 L D, Total Counted 100, Neutrophils % (Manual) 91 H, Band Neutrophils % 3.0, Lymphocytes % (Manual) 4 L, Monocytes % (Manual) 2, Platelet Estimate Normal, Hypochromasia 1+, Anisocytosis 1+ 12/05/20 10:34: Specimen Source Left brachial, O2 % 4 lpm nc, ABG pH 7.46 H, ABG pCO2 43.1, ABG pO2 68.7 L, ABG HCO3 29.8 H, ABG Total CO2 31.1 H, ABG O2 Saturation 95, ABG Base Excess 5.9 H, Talon Test Acceptable I & O for Last 24 hours: Intake & Output 12/03/20 12/04/20 12/05/20 12/06/20 11:59 11:59 11:59 11:59 Intake Total 1000 / 1000 1110 / 1110 1020 / 1020 2855 / 2855 Output Total 2600 / 2600 1300 / 1300 2500 / 2500 Balance 1000 / 1000 -1490 / -1490 -280 / -280 355 / 355 Weight 130 lb 137 lb 7 oz 140 lb 2 oz 135 lb 9 oz Microbiology Reports for the Last 24 Hours: Microbiology 12/03/20 09:45 Sputum - Expectorated Sputum Gram Stain - Final 12/03/20 09:45 Sputum - Expectorated Sputum Sputum Culture - Preliminary Narrative: Patient is awake, pleasant. Does respond to questions but is inappropriate, stating I found the old dog. She denies that she is in the hospital but then proceeds to have more conversations about the dog. She has rhonchi in both bases but air movement is better. Heart rate regular. Abdomen is less distended. Berrios catheter is draining clear urine with mild sediment. No distal edema, patient in soft brace per orthopedics. No distal pulse deficits. No cranial nerve deficits. Assessment and Plan (1) COPD (chronic obstructive pulmonary disease) Status: Acute Qualifiers: COPD type: unspecified COPD Qualified Code(s): J44.9 - Chronic obstructive pulmonary disease, unspecified Category: Medical Code(s): J44.9 - Chronic obstructive pulmonary disease, unspecified (2) HAP (hospital-acquired pneumonia) Status: Acute Category: Medical Code(s): J18.9 - Pneumonia, unspecified organism; Y95 - Nosocomial condition (3) Acute delirium Status: Acute Category: Medical Code(s): R41.0 - Disorientation, unspecified (4) Anemia Status: Acute Qualifiers: Anemia type: unspecified type Qualified Code(s): D64.9 - Anemia, unspecified Category: Medical Code(s): D64.9 - Anemia, unspecified (5) Breast cancer in female Status: Acute Qualifiers: Breast location: unspecified site of breast Estrogen receptor status: unspecified Laterality: unspecified laterality Qualified Code(s): C50.919 - Malignant neoplasm of unspecified site of unspecified female breast Category: Medical Code(s): C50.919 - Malignant neoplasm of unspecified site of unspecified female breast (6) Hip fracture Status: Acute Qualifiers: Encounter type: initial encounter Fracture type: closed Laterality: right Qualified Code(s): S72.001A - Fracture of unspecified part of neck of right femur, initial encounter for closed fracture Category: Medical Code(s): S72.009A - Fracture of unspecified part of neck of unspecified femur, initial encounter for closed fracture (7) Leukocytosis Status: Acute Qualifiers: Leukocytosis type: unspecified Qualified Code(s): D72.829 - Elevated white blood cell count, unspecified Category: Medical Code(s): D72.829 - Elevated white blood cell count, unspecified
[2020-12-06 09:08] LABS: Basophils # 0.2 K/mm3 (0-0.2); Basophils % 0.4 % (0.1-2.0); Eosinophils # 0.2 K/mm3 (0.0-0.4); Eosinophils % 0.4 % (0.1-12.0); Hematocrit 29.3 % (37.0-47.0); Hemoglobin 9.6 g/dL (12.2-16.2); Lymphocytes # 1.3 K/mm3 (0.7-4.5); Lymphocytes % 2.8 % (10-50); Mean Corpuscular HGB Conc 32.7 g/dL (31.8-35.4); Mean Corpuscular Hemoglobin 28.5 pg (27.0-31.2); Mean Corpuscular Volume 87.3 fl (81-99); Mean Platelet Volume 7.7 fl (7.4-10.4); Monocytes # 1.1 K/mm3 (0.1-1.0); Monocytes % 2.3 % (1.7-9.3); Neutrophils # 42.6 K/mm3 (1.8-7.8); Neutrophils % 94.1 % (37.0-80.0); Platelet Count 264 K/mm3 (142-424); Red Blood Count 3.36 M/mm3 (4.20-5.40); Red Cell Distribution Width 17.5 % (11.5-17.5)
[2020-12-06 09:32] LABS: White Blood Count 45.3 K/mm3 (4.8-10.8)
[2020-12-06 09:33] LABS: MANUAL DIFFERENTIAL MANUAL DIFFERENTIAL (MANUAL DIFF)
[2020-12-06 09:40] LABS: Vancomycin,Trough 12.8 ug/mL (5.0-10.0)
--- NOTE | 2020-12-06 09:55 | HMH.PHACONS ---
- Pharmacy Consult Date: 12/06/20 Time: 09:55 Referring provider: DR. CHICAS Reason for Consult:: VANCOMYCIN TROUGH LEVEL Allergies and ADEs:: Allergies Allergy/AdvReac Type Severity Reaction Status Date / Time No Known Allergies Allergy Unverified 08/04/17 14:27 Home Medications:: Home Medications Medication Instructions Recorded Confirmed Type Amitriptyline HCl 100 mg PO HS 12/02/20 12/02/20 History Ascorbic Acid [Vitamin C] 1,000 mg PO DAILY 12/02/20 12/02/20 History Bifidobacterium Infantis [Align] 4 mg PO DAILY 12/02/20 12/02/20 History Cetirizine HCl [Zyrtec] 10 mg PO DAILY 12/02/20 12/02/20 History Cholecalciferol (Vitamin D3) 50,000 unit PO WEEKLY 12/02/20 12/02/20 History [Vitamin D3 50,000 unit Cap] Citalopram Hydrobromide 10 mg PO DAILY 12/02/20 12/02/20 History [Citalopram 10mg Tablet] Diphenoxylate HCl/Atropine 2.5 mg PO DAILYP PRN 12/02/20 12/03/20 History [Lomotil 2.5mg tablet] Fluconazole [Diflucan] 200 mg PO WEEKLY 12/02/20 12/02/20 History LORazepam [Lorazepam 1mg Tablet] 1 mg PO TIDP PRN 12/02/20 12/03/20 History Megestrol Acetate [Megestrol 400 mg PO BID 12/02/20 12/02/20 History Acetate 400mg/10mL Udc] Nystatin [Nystatin Susp 500,000 4 ml PO QID 12/02/20 12/03/20 History Units/5mL Udc] Venlafaxine HCl [Venlafaxine HCl 150 mg PO HS 12/02/20 12/02/20 History ER] guaiFENesin [Mucinex 600mg tablet] 1,200 mg PO HS 12/02/20 12/02/20 History levoFLOXacin [Levofloxacin 750MG 750 mg PO DAILY 12/02/20 12/02/20 History Tablet*] methylPREDNISolone 4 mg PO DIRECTED 12/02/20 12/03/20 History [Methylprednisolone] Ipratropium/Albuterol Sulfate 3 ml IH QID 12/03/20 12/03/20 History [Duoneb 3mL neb] Height: 1.75 m Weight: 61.49 kg Laboratory Results:: Laboratory Results - last 24 hr 12/05/20 10:34: Specimen Source Left brachial, O2 % 4 lpm nc, ABG pH 7.46 H, ABG pCO2 43.1, ABG pO2 68.7 L, ABG HCO3 29.8 H, ABG Total CO2 31.1 H, ABG O2 Saturation 95, ABG Base Excess 5.9 H, Talon Test Acceptable 12/06/20 08:45: Vancomycin Trough 12.8 H 12/06/20 08:45: WBC 45.3 H*, RBC 3.36 L, Hgb 9.6 L, Hct 29.3 L, MCV 87.3, MCH 28.5, MCHC 32.7, RDW 17.5, Plt Count 264 D, MPV 7.7, Neut % (Auto) 94.1 H, Lymph % (Auto) 2.8 L, [place] % (Auto) 2.3, Eos % (Auto) 0.4, Baso % (Auto) 0.4, Neut # (Auto) 42.6 H, Lymph # (Auto) 1.3, [place] # (Auto) 1.1 H, Eos # (Auto) 0.2, Baso # (Auto) 0.2 Medical History: Reports:: Cancer (Lung and metastatic breast cancer), Congestive Heart Failure, Lung Disease Denies:: Diabetes Mellitus Type 1, Diabetes Mellitus Type 2, Seizures Assessment and Plan (1) COPD (chronic obstructive pulmonary disease) Status: Acute Qualifiers: COPD type: unspecified COPD Qualified Code(s): J44.9 - Chronic obstructive pulmonary disease, unspecified Category: Medical Code(s): J44.9 - Chronic obstructive pulmonary disease, unspecified (2) HAP (hospital-acquired pneumonia) Status: Acute Category: Medical Code(s): J18.9 - Pneumonia, unspecified organism; Y95 - Nosocomial condition (3) Acute delirium Status: Acute Category: Medical Code(s): R41.0 - Disorientation, unspecified (4) Anemia Status: Acute Qualifiers: Anemia type: unspecified type Qualified Code(s): D64.9 - Anemia, unspecified Category: Medical Code(s): D64.9 - Anemia, unspecified (5) Breast cancer in female Status: Acute Qualifiers: Breast location: unspecified site of breast Estrogen receptor status: unspecified Laterality: unspecified laterality Qualified Code(s): C50.919 - Malignant neoplasm of unspecified site of unspecified female breast Category: Medical Code(s): C50.919 - Malignant neoplasm of unspecified site of unspecified female breast (6) Hip fracture Status: Acute Qualifiers: Encounter type: initial encounter Fracture type: closed Laterality: right Qualified Code(s): S72.001A - Fracture of unspecified part of neck of right fe
[2020-12-06 10:04] LABS: Lymphocytes % 8 % (10-50); Monocytes % 3 % (2-9); Neutrophils % 89 % (42-76); Platelet Estimate Normal; RBC Morphology Normal; Total Cells Counted 100
--- NOTE | 2020-12-06 10:28 | HMH.PULMPN ---
Internal Medicine - PN: Subj *Date: 12/06/20 *Time: 10:28 Interval history: Patient respiratory distress improved from yesterday. Remained on 4 L nasal cannula with saturations maintaining greater than 90% Exam - Constitutional Constitutional:: Present: comfortable - HENMT Exam HENMT: Present: normocephalic, atraumatic - Eye Exam Eyes:: Present: normal appearance both eyes and related structures - Neck Exam Neck:: Present: normal visual inspection - Respiratory Exam Respiratory:: Present: able to speak in complete sentences, no respiratory distress, normal respiratory effort, decreased breath sounds, crackles, wheezing - Cardiovascular Exam Cardiac:: Present: S1, S2 - Skin Exam Skin: Present: warm, no rash - Neurological Exam Neurological: Absent: alert, normal cognition - Extremities Exam Extremities: Present: no cyanosis, no clubbing, edema Assessment and Plan (1) COPD (chronic obstructive pulmonary disease) Status: Acute Qualifiers: COPD type: unspecified COPD Qualified Code(s): J44.9 - Chronic obstructive pulmonary disease, unspecified Category: Medical Code(s): J44.9 - Chronic obstructive pulmonary disease, unspecified (2) HAP (hospital-acquired pneumonia) Status: Acute Category: Medical Code(s): J18.9 - Pneumonia, unspecified organism; Y95 - Nosocomial condition - Assessment and plan all Dx Assessment and Plan for all problems:: #COPD: # HAP 59-year-old COPD long-term oxygen therapy at 4 L ,history of asthma presented with history of fall. Further questioning patient denies any fevers or chills or worsening productive phlegm. Auscultation bilateral decreased breath sounds with significant wheezing. Chest x-ray bilateral lower lobe effusions with questionable atelectasis of the right lower lobe. Patient also history of stage IV breast cancer diagnosed in 2017 status post bilateral Pleurx catheter placed that was removed 2 years ago and patient was told to have loculated effusion. It is unclear whether effusions noted are a part of her prior loculated effusions or acute effusion however given her baseline respiratory status I do not think these effusions will preclude her from proceeding with the surgery at this point. [facility] for further review. Patient completed surgery. Her respiratory rate has been relatively stable throughout this hospital admission, she has been on 4 L nasal cannula saturations maintaining greater than 90%. Repeat ABG did not show any evidence hypercarbic respiratory failure showed hypoxia with a PO2 68.7. Patient receiving Lasix and her respiratory status improved from yesterday. We will continue to work with the patient to make her use incentive spirometry. Sputum culture from 12/03/2020 grew normal respiratory anibal. Plan: - Incentive Spirometry - We will continue nebulization therapy at [facility] every 6 hours along with budesonide every 12 to optimize her pulmonary status. - Continue vancomycin and cefepime for possible HAP (Patient on steroids and levofloxacin for her recent presumed pneumonia from an outside hospital.) - Nasal MRSA screen, sputum cultures - Strict aspiration precautions #Thank you for involving pulmonary in this patient care. We will continue to follow.
--- NOTE | 2020-12-06 10:50 | HMH.ACPN ---
Internal Medicine - PN: Subj *Date: 12/06/20 *Time: 10:50 Exam Vital signs and Labs for Last 24 Hours: Temp Pulse Resp BP Pulse Ox 98.4 F 110 H 19 113/68 96 12/06/20 07:46 12/06/20 07:46 12/06/20 07:46 12/06/20 07:46 12/06/20 07:46 Laboratory Results - last 24 hr 12/05/20 10:34: Specimen Source Left brachial, O2 % 4 lpm nc, ABG pH 7.46 H, ABG pCO2 43.1, ABG pO2 68.7 L, ABG HCO3 29.8 H, ABG Total CO2 31.1 H, ABG O2 Saturation 95, ABG Base Excess 5.9 H, Talon Test Acceptable 12/06/20 08:45: Vancomycin Trough 12.8 H 12/06/20 08:45: WBC 45.3 H*, RBC 3.36 L, Hgb 9.6 L, Hct 29.3 L, MCV 87.3, MCH 28.5, MCHC 32.7, RDW 17.5, Plt Count 264 D, MPV 7.7, Neut % (Auto) 94.1 H, Lymph % (Auto) 2.8 L, [place] % (Auto) 2.3, Eos % (Auto) 0.4, Baso % (Auto) 0.4, Neut # (Auto) 42.6 H, Lymph # (Auto) 1.3, [place] # (Auto) 1.1 H, Eos # (Auto) 0.2, Baso # (Auto) 0.2, Total Counted 100, Neutrophils % (Manual) 89 H, Lymphocytes % (Manual) 8 L, Monocytes % (Manual) 3, Platelet Estimate Normal, RBC Morphology Normal I & O for Last 24 hours: Intake & Output 12/03/20 12/04/20 12/05/20 12/06/20 23:59 23:59 23:59 23:59 Intake Total 2110 / 2110 900 / 900 2175 / 2175 800 / 800 Output Total 1700 / 1700 1950 / 1950 2300 / 2300 450 / 450 Balance 410 / 410 -1050 / -1050 -125 / -125 350 / 350 Weight 59 kg 62.341 kg 63.56 kg 61.49 kg Microbiology Reports for the Last 24 Hours: Microbiology 12/03/20 09:45 Sputum - Expectorated Sputum Gram Stain - Final 12/03/20 09:45 Sputum - Expectorated Sputum Sputum Culture - Final Normal Respiratory Jen Assessment and Plan (1) COPD (chronic obstructive pulmonary disease) Status: Acute Qualifiers: COPD type: unspecified COPD Qualified Code(s): J44.9 - Chronic obstructive pulmonary disease, unspecified Category: Medical Code(s): J44.9 - Chronic obstructive pulmonary disease, unspecified (2) HAP (hospital-acquired pneumonia) Status: Acute Category: Medical Code(s): J18.9 - Pneumonia, unspecified organism; Y95 - Nosocomial condition The patient's infection will respond to the chosen ABx?: Yes Is the patient receiving the right drug, dose, and route?: Yes Could a more targeted ABx be ordered?: No
--- NOTE | 2020-12-06 12:23 | PC.NURSE ---
Attempted to give pt her morning dose of risperidone but patient kept spitting it back out. Multiple attempts were made but I was unable to convince pt to take it. However pt was agreeable at lunch time. Prn dose given at lunch time.
[2020-12-06 12:40] LABS: Anion Gap 4.6 mEq/L (5-15); Blood Urea Nitrogen 24 mg/dl (7-17); Calcium 9.4 mg/dl (8.4-10.2); Carbon Dioxide 38 mmol/L (22.0-30.0); Chloride 98 mmol/L (98-107); Creatinine Clearance Estimated 57 mL/min (50-200); Estimated Glomerular Filt Rate 73 ml/min (>60); GFR (African American) 88 ML/MIN (>60); Glucose 94 mg/dl (74-100); Potassium 3.6 mmoL/L (3.5-5.1); Sodium 137 mmol/L (136-145)
--- NOTE | 2020-12-06 15:23 | HMH.ORTHPN ---
Subjective Date: 12/06/20 Time: 13:00 Principal diagnosis: Fall with wrist and hip fractures Interval history: The patient appears somewhat improved today. She is still confused but appears more alert. She was able to sit on the edge of the bed with physical therapy but was maximal assist for this and was only able to sit for a minute. She does not appear to be in significant pain at this time. PN: Obj Ex Vital signs: Temp Pulse Resp BP Pulse Ox 97.3 F L 105 H 20 119/68 93 L 12/06/20 12:00 12/06/20 12:00 12/06/20 12:00 12/06/20 12:00 12/06/20 12:00 - Constitutional no acute distress - Routine HEENT Exam Head: Present: normocephalic Eye: Present: EOMI ENT: Present: mucous membranes moist - Routine Neck Exam Present: trachea midline - Routine Respiratory Exam Present: wheezes. Absent: respiratory distress - Routine Cardiovascular Exam Present: RRR - Routine Abdominal Exam Present: soft. Absent: tenderness - Routine Exam Comments: curran catheter in place - Routine Extremities Exam Comments: R hip dressing c/d/i, no strikethrough +DF/PF/EHL RLE SILT distally RLE palpable pedal pulses RLE, foot pink/warm R calf soft, non-tender - Routine Skin Exam Present: warm - Routine Neurological Exam Present: alert, altered mental status, moving all extremities, vision grossly intact, hearing grossly intact. Absent: oriented X3, sensory deficit, motor deficit, normal speech - Urinary Catheter Management Curran Cath placed during this visit: yes Urethral indwelling: Yes Reason for continuing: Measure accurate output Insertion date: 12/03/20 Progress Note: A&P (1) COPD (chronic obstructive pulmonary disease) Status: Acute (2) HAP (hospital-acquired pneumonia) Status: Acute (3) Acute delirium Status: Acute (4) Anemia Status: Acute (5) Breast cancer in female Status: Acute (6) Diastolic CHF Status: Acute (7) Hip fracture Status: Acute (8) Leukocytosis Status: Acute (9) Wrist fracture, right Status: Acute Assessment and Plan for All Diagnoses:: 60yo F with metastatic breast cancer and COPD on home oxygen; s/p fall 12/02/20 with displaced R femoral neck fracture and non-displaced R distal radius fracture --> POD 2 s/p R hip hemiarthroplasty -- continue wrist brace R wrist, minimal WB <1-2lb -- may be OOB as tolerated with assist; WBAT RLE -- posterior hip precautions, hip abduction pillow while in bed -- PT/OT to continue while admitted -- SCD LLE, encourage IS 10x/hr while awake -- ice pack R hip as needed -- DVT prophy: lovenox -- continue antibiotics per PCP/pulmonary -- pain control; po/IV meds ordered PRN -- care management consult for dispo planning -- has bed at [facility] when ready for d/c -- medical management per Dr. Montanez/Vic
--- NOTE | 2020-12-06 16:57 | PC.NURSE ---
Pt has been very confused and somewhat uncooperative with care this shift. She has yelled out for momma occasionally but not as frequent as yesterday. She pulled her IV out of her port. Site cleaned and new 20g placed. It flushes easy and has good blood return. She had a bm this shift. Pt bathed and bed changed per [facility] Griffin's. Berrios is draining to gravity at the bedside. Approx 1000 mls out thus far. Brace to right wrist and abduction pillow in place. Bruising noted to right hand/wrist/arm and faint bruising noted to upper buttocks/lower back. Will continue to monitor.
--- NOTE | 2020-12-06 17:52 | PC.NURSE ---
REDUCED O2 TO 3L N/C
[2020-12-07] VITALS (9 sets, daily range): BP systolic 111–125; BP diastolic 67–78; PULSE 100–120; RESP 19–23; TEMP 36.6–36.8; O2SAT 90–99; BMI 20.3
--- NOTE | 2020-12-07 03:29 | PC.NURSE ---
PT HAS NOT BEEN A&O THIS SHIFT. PT UNABLE TO FOLLOW COMMANDS. PT WILL RANDOMLY SAY MAMA AT TIMES. PT TOLERATING 2LNC WELL T/O SHIFT. PT HAS RESTED IN BED AND SLEPT AT INTERVALS. BED SAFETY APPLIED. F/C DRAINING DARK YELLOW URINE. DRESSING TO R HIP CDI. PT WEARING BRACE ON R WRIST. PORT TO R CHEST CDI. PT BEING TURNED 2QH. PT HAD BM THIS SHIFT. PT REMAINS CONFUSED. VSS WILL CONTINUE TO MONITOR.
--- NOTE | 2020-12-07 05:12 | PC.NURSE ---
DID GET PT TO EAT APPLESAUCE LAST NIGHT AND TAKE A FEW SIPS OF WATER. PT WILL NOT EAT OR DRINK THIS MORNING. PT REFUSING ABDUCTOR PILLOW.
--- NOTE | 2020-12-07 08:22 | HMH.ACPN ---
Internal Medicine - PN: Subj *Date: 12/07/20 *Time: 08:22 Exam Vital signs and Labs for Last 24 Hours: Temp Pulse Resp BP Pulse Ox 98.2 F 112 H 20 111/69 99 12/07/20 07:51 12/07/20 07:51 12/07/20 07:51 12/07/20 07:51 12/07/20 07:51 Laboratory Results - last 24 hr 12/06/20 08:25: Sodium 137, Potassium 3.6, Chloride 98, Carbon Dioxide 38 H, Anion Gap 4.6 L, BUN 24 H, Creatinine 0.80, Estimated Creat Clear 57, Estimated GFR 73, Est GFR ( Amer) 88, Glucose 94, Calcium 9.4 12/06/20 08:45: Vancomycin Trough 12.8 H 12/06/20 08:45: WBC 45.3 H*, RBC 3.36 L, Hgb 9.6 L, Hct 29.3 L, MCV 87.3, MCH 28.5, MCHC 32.7, RDW 17.5, Plt Count 264 D, MPV 7.7, Neut % (Auto) 94.1 H, Lymph % (Auto) 2.8 L, [place] % (Auto) 2.3, Eos % (Auto) 0.4, Baso % (Auto) 0.4, Neut # (Auto) 42.6 H, Lymph # (Auto) 1.3, [place] # (Auto) 1.1 H, Eos # (Auto) 0.2, Baso # (Auto) 0.2, Total Counted 100, Neutrophils % (Manual) 89 H, Lymphocytes % (Manual) 8 L, Monocytes % (Manual) 3, Platelet Estimate Normal, RBC Morphology Normal I & O for Last 24 hours: Intake & Output 12/04/20 12/05/20 12/06/20 12/07/20 23:59 23:59 23:59 23:59 Intake Total 900 / 900 2175 / 2175 1550 / 1550 350 / 350 Output Total 1950 / 1950 2300 / 2300 1550 / 1550 175 / 175 Balance -1050 / -1050 -125 / -125 0 / 0 175 / 175 Weight 62.341 kg 63.56 kg 61.49 kg 62.341 kg Microbiology Reports for the Last 24 Hours: Microbiology 12/06/20 15:25 Nasopharyngeal Coronavirus COVID-19 PCR - Final 12/03/20 11:45 Nose - Nasal MRSA Culture - Final Negative 12/03/20 09:45 Sputum - Expectorated Sputum Gram Stain - Final 12/03/20 09:45 Sputum - Expectorated Sputum Sputum Culture - Final Normal Respiratory Jen Assessment and Plan (1) COPD (chronic obstructive pulmonary disease) Status: Acute Qualifiers: COPD type: unspecified COPD Qualified Code(s): J44.9 - Chronic obstructive pulmonary disease, unspecified Category: Medical Code(s): J44.9 - Chronic obstructive pulmonary disease, unspecified (2) HAP (hospital-acquired pneumonia) Status: Acute Category: Medical Code(s): J18.9 - Pneumonia, unspecified organism; Y95 - Nosocomial condition (3) Acute delirium Status: Acute Category: Medical Code(s): R41.0 - Disorientation, unspecified (4) Anemia Status: Acute Qualifiers: Anemia type: unspecified type Qualified Code(s): D64.9 - Anemia, unspecified Category: Medical Code(s): D64.9 - Anemia, unspecified (5) Breast cancer in female Status: Acute Qualifiers: Breast location: unspecified site of breast Estrogen receptor status: unspecified Laterality: unspecified laterality Qualified Code(s): C50.919 - Malignant neoplasm of unspecified site of unspecified female breast Category: Medical Code(s): C50.919 - Malignant neoplasm of unspecified site of unspecified female breast (6) Diastolic CHF Status: Acute Category: Medical Code(s): I50.30 - Unspecified diastolic (congestive) heart failure (7) Hip fracture Status: Acute Qualifiers: Encounter type: initial encounter Fracture type: closed Laterality: right Qualified Code(s): S72.001A - Fracture of unspecified part of neck of right femur, initial encounter for closed fracture Category: Medical Code(s): S72.009A - Fracture of unspecified part of neck of unspecified femur, initial encounter for closed fracture (8) Leukocytosis Status: Acute Qualifiers: Leukocytosis type: unspecified Qualified Code(s): D72.829 - Elevated white blood cell count, unspecified Category: Medical Code(s): D72.829 - Elevated white blood cell count, unspecified (9) Wrist fracture, right Status: Acute Qualifiers: Encounter type: initial encounter Fracture type: closed Qualified Code(s): S62.101A - Fracture of unspecified carpal bone, right wrist, initial encounter for closed fracture
--- NOTE | 2020-12-07 08:28 | HMH.ACPN2 ---
Internal Medicine - PN: Subj *Date: 12/07/20 *Time: 19:13 Interval history: Ms. Winter remained hemodynamically stable overnight with normal blood pressure. Continues to be tachycardic however. Stable on 3 L nasal cannula, has weaned down. This morning however is quite confused. Responds to hello but then does not answer questions. Is staring off into space and not responding. Does respond to pain and will localize. Eyes open spontaneously and will look at you briefly. Unable to elicit review of systems or history. Afebrile this morning. Exam Vital signs and Labs for Last 24 Hours: Temp Pulse Resp BP Pulse Ox 98.2 F 112 H 20 111/69 99 12/07/20 07:51 12/07/20 07:51 12/07/20 07:51 12/07/20 07:51 12/07/20 07:51 Laboratory Results - last 24 hr 12/06/20 08:25: Sodium 137, Potassium 3.6, Chloride 98, Carbon Dioxide 38 H, Anion Gap 4.6 L, BUN 24 H, Creatinine 0.80, Estimated Creat Clear 57, Estimated GFR 73, Est GFR ( Amer) 88, Glucose 94, Calcium 9.4 12/06/20 08:45: Vancomycin Trough 12.8 H 12/06/20 08:45: WBC 45.3 H*, RBC 3.36 L, Hgb 9.6 L, Hct 29.3 L, MCV 87.3, MCH 28.5, MCHC 32.7, RDW 17.5, Plt Count 264 D, MPV 7.7, Neut % (Auto) 94.1 H, Lymph % (Auto) 2.8 L, [place] % (Auto) 2.3, Eos % (Auto) 0.4, Baso % (Auto) 0.4, Neut # (Auto) 42.6 H, Lymph # (Auto) 1.3, [place] # (Auto) 1.1 H, Eos # (Auto) 0.2, Baso # (Auto) 0.2, Total Counted 100, Neutrophils % (Manual) 89 H, Lymphocytes % (Manual) 8 L, Monocytes % (Manual) 3, Platelet Estimate Normal, RBC Morphology Normal I & O for Last 24 hours: Intake & Output 12/04/20 12/05/20 12/06/20 12/07/20 23:59 23:59 23:59 23:59 Intake Total 900 / 900 2175 / 2175 1550 / 1550 350 / 350 Output Total 1950 / 1950 2300 / 2300 1550 / 1550 175 / 175 Balance -1050 / -1050 -125 / -125 0 / 0 175 / 175 Weight 62.341 kg 63.56 kg 61.49 kg 62.341 kg Microbiology Reports for the Last 24 Hours: Microbiology 12/06/20 15:25 Nasopharyngeal Coronavirus COVID-19 PCR - Final 12/03/20 11:45 Nose - Nasal MRSA Culture - Final Negative 12/03/20 09:45 Sputum - Expectorated Sputum Gram Stain - Final 12/03/20 09:45 Sputum - Expectorated Sputum Sputum Culture - Final Normal Respiratory Jen - Constitutional mild distress, average body habitus, chronically ill appearing - *Routine HEENT Exam Head: Present: normocephalic Eye: Present: EOMI, PERRL ENT: Present: mucous membranes moist - *Routine Neck Exam Present: supple. Absent: lymphadenopathy - *Routine Respiratory Exam Present: other Comments: Tachypneic in the low 20s. Diffusely wheezy bilateral lung boyd. No rhonchi, faint crackles in bases. - *Routine Cardiovascular Exam Present: tachycardia. Absent: JVD - *Routine Abdominal Exam Present: soft, normoactive bowel sounds. Absent: tenderness - *Routine Extremities Exam Present: edema (1+ bilaterally). Absent: cyanosis, clubbing Comments: Right hip tender to palpation, dressing clean dry and intact. No significant ecchymoses - *Routine Skin Exam Present: warm. Absent: rash - *Routine Neurological Exam Present: alert Alert, opens eyes spontaneously, vocalizes and responds verbally to pain, not answering questions or following commands. Disoriented to person place and time Assessment and Plan (1) COPD (chronic obstructive pulmonary disease) Status: Acute Qualifiers: COPD type: unspecified COPD Qualified Code(s): J44.9 - Chronic obstructive pulmonary disease, unspecified Category: Medical Code(s): J44.9 - Chronic obstructive pulmonary disease, unspecified (2) HAP (hospital-acquired pneumonia) Status: Acute Category: Medical Code(s): J18.9 - Pneumonia, unspecified organism; Y95 - Nosocomial condition (3) Acute delirium Status: Acute Category: Medical Code(s): R41.0 - Disorientation, unspecified (4) Anemia Status: Acute Qualifiers: Anem
--- NOTE | 2020-12-07 08:33 | CT_ITS ---
PROCEDURE: CT CHEST WO CON CLINICAL INDICATION: worsening SOA, metastatic breast cancer COMPARISON: CR XR CHEST PORTABLE from 12/05/2020 TECHNIQUE: Axial images obtained with sagittal and coronal reformats. All CT scans at the facility use one or more dose reduction, viz: automated exposure control, ma/kV adjustment per patient size (including targeted exams where dose is matched to indication, i.e. head), or iterative reconstruction technique. FINDINGS: HEART AND MEDIASTINAL STRUCTURES: There is a right IJ MediPort catheter present. The tip is in the region the SVC. There is minimal stranding of the anterior mediastinal fat nonspecific. There is cardiomegaly with a minimal thickening of the pericardium suggesting small pericardial effusion. LUNGS AND PLEURAL SPACES: Centrilobular emphysema. There are scattered areas of scarring. A 7 x 8 mm nodular opacity present in the right upper lobe laterally possibly due to an area of scarring or developing nodule. There are small bilateral loculated pleural effusions in the lung bases. Associated atelectatic changes are present. There is consolidation in the left lower lobe posteriorly. An irregular nodular opacity is present in the left lower lobe and 7 mm series 3, image 41 and may be due to an area of scarring or atelectatic change. Cannot exclude developing nodule. Small amount of fluid is present in the right major fissure. There is mild thickening of the left major fissure. BONY STRUCTURES: There are a few scattered tiny by sclerotic foci both clavicles and right humeral head, sternum, and L2 and may be due to bone islands versus tiny blastic foci. No bony destructive process. Patient is tilted toward the right UPPER ABDOMEN: Unremarkable. ADDITIONAL FINDINGS: No other significant abnormalities. IMPRESSION: 1. Small bilateral loculated pleural effusions with atelectatic changes and consolidation in the left lung base posteriorly which may represent pneumonia or volume loss. 2. Centrilobular emphysema with scattered areas of scarring. There is a nodular opacity in the right upper lobe and 1 in the left lower lobe as described above and could be due to scarring or developing nodules. Three month follow-up may provide further evaluation. 3. Cardiomegaly with with small pericardial effusion 4. There are a few tiny sclerotic foci which could be due to bone islands. Small metastatic foci also a consideration. Dictated by: Talon Adkins MD 12/07/2020 10:03 Talon Adkins MD in [place] 12/07/2020 10:03
[2020-12-07 09:54] LABS: Basophils # 0.1 K/mm3 (0-0.2); Basophils % 0.4 % (0.1-2.0); Eosinophils # 0.1 K/mm3 (0.0-0.4); Eosinophils % 0.4 % (0.1-12.0); Hematocrit 31.5 % (37.0-47.0); Lymphocytes # 1.3 K/mm3 (0.7-4.5); Lymphocytes % 3.3 % (10-50); Mean Corpuscular HGB Conc 31.7 g/dL (31.8-35.4); Mean Corpuscular Hemoglobin 28.3 pg (27.0-31.2); Mean Corpuscular Volume 89.3 fl (81-99); Mean Platelet Volume 8.6 fl (7.4-10.4); Monocytes % 2.7 % (1.7-9.3); Neutrophils # 35.9 K/mm3 (1.8-7.8); Neutrophils % 93.3 % (37.0-80.0); Platelet Count 480 K/mm3 (142-424); Red Blood Count 3.52 M/mm3 (4.20-5.40); Red Cell Distribution Width 17.6 % (11.5-17.5); White Blood Count 38.5 K/mm3 (4.8-10.8)
[2020-12-07 09:57] LABS: Ammonia < 9 umol/L (9-30); Anion Gap 6.5 mEq/L (5-15); Blood Urea Nitrogen 33 mg/dl (7-17); Calcium 9.7 mg/dl (8.4-10.2); Carbon Dioxide 36 mmol/L (22.0-30.0); Chloride 100 mmol/L (98-107); Creatinine Clearance Estimated 57 mL/min (50-200); Estimated Glomerular Filt Rate 63 ml/min (>60); GFR (African American) 77 ML/MIN (>60); Glucose 108 mg/dl (74-100); Potassium 3.5 mmoL/L (3.5-5.1); Sodium 139 mmol/L (136-145); Uric Acid 7.2 mg/dl (2.5-6.2)
[2020-12-07 10:02] LABS: MANUAL DIFFERENTIAL MANUAL DIFFERENTIAL (MANUAL DIFF)
[2020-12-07 10:34] LABS: Eosinophils % 1 % (0-3); Lymphocytes % 8 % (10-50); Monocytes % 6 % (2-9); Neutrophils % 85 % (42-76); Platelet Estimate Slight Increase; RBC Morphology Normal; Total Cells Counted 100
--- NOTE | 2020-12-07 12:23 | P.PN_ITS ---
Subjective Date: 12/07/20 Time: 11:30 Principal diagnosis: Fall with wrist and hip fractures Interval history: No acute events reported overnight, vitals remained stable. The patient appears comfortable but remains disoriented. She is alert and more calm today, but is not oriented to person, place or time. Increased shortness of breath has led to CT scan of the chest this morning. She has had difficulty participating in physical therapy due to her mental status and is max assist. PN: Obj Ex Vital signs: Temp Pulse Resp BP Pulse Ox 98.2 F 110 H 20 120/78 98 12/07/20 12:00 12/07/20 12:00 12/07/20 12:00 12/07/20 12:00 12/07/20 12:00 - Constitutional no acute distress, average body habitus - Routine HEENT Exam Head: Present: normocephalic Eye: Present: EOMI ENT: Present: mucous membranes moist - Routine Neck Exam Present: trachea midline - Routine Respiratory Exam Present: wheezes. Absent: respiratory distress - Routine Cardiovascular Exam Present: RRR - Routine Abdominal Exam Present: soft. Absent: tenderness - Routine Exam Comments: curran catheter in place - Routine Extremities Exam Comments: R hip dressing c/d/i, no strikethrough dressing removed, incision c/d/i; no periwound ecchymosis or erythema, no drainage +DF/PF/EHL RLE SILT distally RLE palpable pedal pulses RLE, foot pink/warm R calf soft, non-tender - Routine Skin Exam Present: warm - Routine Neurological Exam Present: alert. Absent: oriented X3 - Urinary Catheter Management Curran Cath placed during this visit: yes Urethral indwelling: Yes Reason for continuing: Measure accurate output Insertion date: 12/03/20 Progress Note: A&P (1) COPD (chronic obstructive pulmonary disease) Status: Acute (2) HAP (hospital-acquired pneumonia) Status: Acute (3) Acute delirium Status: Acute (4) Anemia Status: Acute (5) Breast cancer in female Status: Acute (6) Diastolic CHF Status: Acute (7) Hip fracture Status: Acute (8) Leukocytosis Status: Acute (9) Wrist fracture, right Status: Acute Assessment and Plan for All Diagnoses:: 60yo F with metastatic breast cancer and COPD on home oxygen; s/p fall 12/02/20 with displaced R femoral neck fracture and non-displaced R distal radius fracture --> POD 3 s/p R hip hemiarthroplasty -- dressing changed today; may change every 1-2 days as long as it remains dry -- continue wrist brace R wrist, minimal WB <1-2lb -- may be OOB as tolerated with assist; WBAT RLE -- posterior hip precautions, hip abduction pillow while in bed -- PT/OT to continue while admitted -- SCD LLE, encourage IS 10x/hr while awake -- ice pack R hip as needed -- DVT prophy: lovenox -- continue antibiotics per PCP/pulmonary -- pain control; po/IV meds ordered PRN -- care management consult for dispo planning -- has bed at [facility] when ready for d/c -- medical management per Dr. Montanez/Vic
--- NOTE | 2020-12-07 13:22 | P.PN_ITS ---
Internal Medicine - PN: Subj *Date: 12/07/20 *Time: 13:22 Interval history: No acute respiratory vents overnight. Patient respiratory status continued to improve. Exam - Constitutional Constitutional:: Present: no acute distress, comfortable - HENMT Exam HENMT: Present: normocephalic - Neck Exam Neck:: Present: normal visual inspection - Respiratory Exam Respiratory:: Present: no respiratory distress, normal respiratory effort, crackles, wheezing - Cardiovascular Exam Cardiac:: Present: S1, S2 - Skin Exam Skin: Present: warm, no rash - Neurological Exam Neurological: Absent: alert, normal cognition - Extremities Exam Extremities: Present: no cyanosis, no clubbing, no edema Assessment and Plan (1) COPD (chronic obstructive pulmonary disease) Status: Acute Qualifiers: COPD type: unspecified COPD Qualified Code(s): J44.9 - Chronic obstructive pulmonary disease, unspecified Category: Medical Code(s): J44.9 - Chronic obstructive pulmonary disease, unspecified (2) HAP (hospital-acquired pneumonia) Status: Acute Category: Medical Code(s): J18.9 - Pneumonia, unspecified organism; Y95 - Nosocomial condition (3) Diastolic CHF Status: Acute Category: Medical Code(s): I50.30 - Unspecified diastolic (congestive) heart failure - Assessment and plan all Dx Assessment and Plan for all problems:: 59-year-old COPD long-term oxygen therapy at 4 L started in the last 6 months,history of asthma presented with history of fall. Further questioning patient denies any fevers or chills or worsening productive phlegm. Auscultation bilateral decreased breath sounds with significant wheezing. Chest x-ray bilateral lower lobe effusions with questionable atelectasis of the right lower lobe. Patient also history of stage IV breast cancer diagnosed in 2017 status post bilateral Pleurx catheter placed that was removed 2 years ago and patient was told to have loculated effusion. It is unclear whether effusions noted are a part of her prior loculated effusions or acute effusion however given her baseline respiratory status I do not think these effusions will preclude her from proceeding with the surgery at this point. [facility] for further review. Patient completed surgery. Sputum culture from 12/03/2020 grew normal respiratory anibal. CT scan performed 12/07/20 reviewed did not show any obvious parenchymal opacity/pneumonia. Patient did have diffuse emphysematous changes. Noted to have concerning pulmonary nodules or atelectasis that needs an outpatient follow-up repeat imaging. Showed small bilateral loculated effusions likely sequela from her prior malignant effusion. Patient respiratory status remained relatively stable since admission, she has been receiving diuresis by the primary team and her respiratory status has been improving with diuresis and antibiotics. Today she was weaned to 2 L nasal cannula saturations maintained greater than 95% Nasal MRSA PCR resulted negative. Will discontinue vancomycin. Plan: -Continue incentive Spirometry - We will continue nebulization therapy at [facility] every 6 hours along with budesonide every 12 to optimize her pulmonary status. - Continue cefepime for a total of 7 days for possible HAP (Patient on steroids and levofloxacin for her recent presumed pneumonia from an outside hospital.) - Strict aspiration precautions #Thank you for involving pulmonary in this patient care. Please call pulmonary with any further questions or concerns.
--- NOTE | 2020-12-07 14:15 | DIET.NUTRFU ---
Pt with poor PO intakes- ~25% plus BID supplements with fair acceptance. She has been increasingly drowsy/confused and uninterested in food, limited and sporadic response to encouragement/cueing. Family at bedside today state this is abnormal for her and that she eats well at home. Family brought her in her favorite foods from [facility] today and she would not even eat that. Pt does somewhat grimace when offered food but denies any abdominal s/s. Continued efforts encouragement/cueing at meal times appreciated. Supplements increased to TID.
--- NOTE | 2020-12-07 18:34 | PC.NURSE ---
PT IS RESTING IN BED. PT HAS BEEN CONFUSED T/O THE SHIFT. ALERT BUT UNABLE TO FOLLOW COMMANDS. PT DID PARTICIPATE WITH PHYSICAL THERAPY BETTER IN THE AFTERNOON THAN SHE DID THIS MORNING. PT WAS ABLE TO STAND AND TAKE A FEW STEPS TO THE CHAIR. TOLERATED SITTING UP IN THE CHAIR FOR SEVERAL HOURS THIS AFTERNOON. PT CONSTANTLY REMOVES OXYGEN( O2 SATURATION WILL DROP TO THE 60-70'S W/O O2) AND ABDUCTOR PILLOW. STATED HE WANTED PT TO REMAIN ON 4 L FOR NOW. LUNG SOUNDS HAVE SCATTERED WHEEZES/FINE CRACKLES. ABDOMEN SOFT/NON TENDER WITH ACTIVE BOWEL SOUNDS. PT HAD A LARGE INCONTINENT BOWEL. DRESSING TO THE RT HIP CHANGED PER THIS SHIFT. MOVEMENT AT THE END OF THE SHIFT. WILL CONTINUE TO MONITOR.
[2020-12-07 23:06] LABS: Adenovirus F 40/41, stool Not Detected (NotDetected); Astrovirus Not Detected (NotDetected); Campylobacter Not Detected (NotDetected); Clostridium Difficile A/B, PCR Not Detected (NotDetected); Cryptosporidium Not Detected (NotDetected); Cyclospora Cayetanesis Not Detected (NotDetected); Entamoeba histolytica Not Detected (NotDetected); Enteroaggregative E coli Not Detected (NotDetected); Enteropathogenic E coli Not Detected (NotDetected); Enterotoxigenic E coli Not Detected (NotDetected); Giardia lamblia Not Detected (NotDetected); Norovirus Not Detected (NotDetected); Plesimonas Shigalloides, PCR Not Detected (NotDetected); Rotavirus A Not Detected (NotDetected); Salmonella, PCR Not Detected (NotDetected); Sapovirus Not Detected (NotDetected); Shiga-like toxin E coli Not Detected (NotDetected); Shigella Enterovasive E coli Not Detected (NotDetected); Vibrio Cholerae Not Detected (NotDetected); Vibrio, PCR Not Detected (NotDetected); Yersinia Entercolitica, PCR Not Detected (NotDetected)
--- NOTE | 2020-12-07 23:12 | PC.NURSE ---
PT has had mutiple large, very foul smelling liquid BMs in a 24hr period. per protocol, diarrhea panel was ordered and sent.
[2020-12-08] VITALS (10 sets, daily range): BP systolic 109–142; BP diastolic 68–79; PULSE 77–116; RESP 17–22; TEMP 36.5–36.7; O2SAT 89–99; BMI 20.5
--- NOTE | 2020-12-08 03:34 | PC.NURSE ---
No acute changes overnight. Pt has not been oriented t/o the shift and does not follow commands. Lungs are diminihsed, on 4L NC this shift. PT has had several liquid BMs this shift. Berrios is draining dark yellow urine. PT has rested well t/o shift. turned q2h. Pt has taken a few sips of water and several bites of applesauce. VSS, call light in reach, no concerns at this time.
[2020-12-08 07:20] LABS: Chloride 102 mmol/L (98-107); Sodium 141 mmol/L (136-145)
[2020-12-08 07:23] LABS: Alanine Aminotransferase 20 U/L (12-78); Albumin Level 2.9 g/dl (3.5-5.0); Alkaline Phosphatase 70 U/L (38-126); Aspartate Amino Transferase 24 U/L (14-36); Bilirubin,Total 0.4 mg/dl (0.2-1.3); Blood Urea Nitrogen 33 mg/dl (7-17); Calcium 9.9 mg/dl (8.4-10.2); Carbon Dioxide 36 mmol/L (22.0-30.0); Creatinine Clearance Estimated 58 mL/min (50-200); Estimated Glomerular Filt Rate 63 ml/min (>60); GFR (African American) 77 ML/MIN (>60); Globulin 2.8 g/dL (1.3-3.2); Glucose 115 mg/dl (74-100); Magnesium 2.2 mg/dl (1.6-2.3); Total Protein,Serum 5.7 g/dl (6.3-8.2)
[2020-12-08 07:33] LABS: Basophils # 0.1 K/mm3 (0-0.2); Basophils % 0.3 % (0.1-2.0); Hematocrit 28.6 % (37.0-47.0); Lymphocytes # 1.1 K/mm3 (0.7-4.5); Lymphocytes % 2.7 % (10-50); Mean Corpuscular HGB Conc 30.7 g/dL (31.8-35.4); Mean Corpuscular Hemoglobin 27.4 pg (27.0-31.2); Mean Corpuscular Volume 89.2 fl (81-99); Mean Platelet Volume 8.8 fl (7.4-10.4); Monocytes % 2.3 % (1.7-9.3); Neutrophils # 39.6 K/mm3 (1.8-7.8); Neutrophils % 94.7 % (37.0-80.0); Platelet Count 635 K/mm3 (142-424); Red Blood Count 3.21 M/mm3 (4.20-5.40); Red Cell Distribution Width 17.4 % (11.5-17.5)
[2020-12-08 07:43] LABS: White Blood Count 41.8 K/mm3 (4.8-10.8)
[2020-12-08 07:45] LABS: Hemoglobin 8.8 g/dL (12.2-16.2)
[2020-12-08 07:46] LABS: MANUAL DIFFERENTIAL MANUAL DIFFERENTIAL (MANUAL DIFF)
--- NOTE | 2020-12-08 08:02 | HMH.ACPN2 ---
Internal Medicine - PN: Subj *Date: 12/08/20 *Time: 08:02 Interval history: Overnight patient slept fairly well. Is comfortable, continues to be significantly demented and disoriented. Has no aggressive or self harm activities or behaviors. Nursing staff does report she takes her oxygen off quite a bit and becomes very hypoxic. Exam Vital signs and Labs for Last 24 Hours: Temp Pulse Resp BP Pulse Ox 98 F 109 H 17 123/78 99 12/08/20 07:41 12/08/20 07:41 12/08/20 07:41 12/08/20 07:41 12/08/20 07:41 Laboratory Results - last 24 hr 12/07/20 08:55: WBC 38.5 H*, RBC 3.52 L, Hgb 10.0 L, Hct 31.5 L, MCV 89.3, MCH 28.3, MCHC 31.7 L, RDW 17.6 H, Plt Count 480 H D, MPV 8.6, Neut % (Auto) 93.3 H, Lymph % (Auto) 3.3 L, [place] % (Auto) 2.7, Eos % (Auto) 0.4, Baso % (Auto) 0.4, Neut # (Auto) 35.9 H, Lymph # (Auto) 1.3, [place] # (Auto) 1.0, Eos # (Auto) 0.1, Baso # (Auto) 0.1, Total Counted 100, Neutrophils % (Manual) 85 H, Lymphocytes % (Manual) 8 L, Monocytes % (Manual) 6, Eosinophils % (Manual) 1, Platelet Estimate Slight increase, RBC Morphology Normal 12/07/20 08:55: Sodium 139, Potassium 3.5, Chloride 100, Carbon Dioxide 36 H, Anion Gap 6.5, BUN 33 H D, Creatinine 0.90, Estimated Creat Clear 57, Estimated GFR 63, Est GFR ( Amer) 77, Glucose 108 H, Calcium 9.7 12/07/20 08:55: Uric Acid 7.2 H 12/07/20 08:55: Ammonia < 9 L 12/07/20 23:00: Stl Aeromonas (PCR) Not detected, Stl C. cayetanensis PCR Not detected, Stool Rotavirus (PCR) Not detected, Stl Adenov F 40/41 PCR Not detected, Stool Astrovirus (PCR) Not detected, Stool Campylobacter PCR Not detected, Stl C.difficile Tox PCR Not detected, Stool Cryptosporidium PCR Not detected, Stl E.coli Shiga Tox PCR Not detected, Stool E coli O157 PCR Not detected, Stl Enterotoxigenic E PCR Not detected, Stool EPEC (PCR) Not detected, Stool EAEC (PCR) Not detected, Stl E. histolytica PCR Not detected, Stool Giardia Lamblia PCR Not detected, Stool Salmonella PCR Not detected, Stool Sapovirus (PCR) Not detected, Stl P. shigelloides PCR Not detected, Stl Shigella/EIEC PCR Not detected, St Y.enterocolitica PCR Not detected, Stool Vibrio (PCR) Not detected, Stl Vibrio cholerae PCR Not detected, Stl Norovirus GI/GII PCR Not detected 12/08/20 06:30: WBC 41.8 H*, RBC 3.21 L, Hgb 8.8 L D, Hct 28.6 L, MCV 89.2, MCH 27.4, MCHC 30.7 L, RDW 17.4, Plt Count 635 H D, MPV 8.8, Neut % (Auto) 94.7 H, Lymph % (Auto) 2.7 L, [place] % (Auto) 2.3, Eos % (Auto) 0.0 L, Baso % (Auto) 0.3, Neut # (Auto) 39.6 H, Lymph # (Auto) 1.1, [place] # (Auto) 1.0, Eos # (Auto) 0.0, Baso # (Auto) 0.1 12/08/20 06:30: Sodium 141, Potassium 4.0, Chloride 102, Carbon Dioxide 36 H, Anion Gap 7.0, BUN 33 H, Creatinine 0.90, Estimated Creat Clear 58, Estimated GFR 63, Est GFR ( Amer) 77, Glucose 115 H, Calcium 9.9, Magnesium 2.2, Total Bilirubin 0.4, AST 24, ALT 20, Alkaline Phosphatase 70, Total Protein 5.7 L, Albumin 2.9 L, Globulin 2.8, Albumin/Globulin Ratio 1.0 L I & O for Last 24 hours: Intake & Output 12/05/20 12/06/20 12/07/20 12/08/20 11:59 11:59 11:59 11:59 Intake Total 1020 / 1020 2855 / 2855 1160 / 1160 75 / 75 Output Total 1300 / 1300 2500 / 2500 1275 / 1275 652 / 652 Balance -280 / -280 355 / 355 -115 / -115 -577 / -577 Weight 140 lb 2 oz 135 lb 9 oz 137 lb 7 oz 138 lb 14.259 oz Narrative: Appears chronically ill. Poor color. At baseline over the past week. Lungs have rhonchi, poor air entry. Heart rate regular. Abdomen soft. No edema noted. Berrios catheter draining yellow urine. Disoriented to place and time. As over the past week. No cranial nerve deficits. Assessment and Plan (1) COPD (chronic obstructive pulmonary disease) Status: Acute Qualifiers: COPD type: unspecified COPD Qualified Code(s): J44.9 - Chronic obstructive pulmonary disease, unspecified Category: Medical Code(s): J44.9 - Chronic obstructive pulmonary disease, unspecified (2) HAP (hospital-acquired pneumonia) Status: Acu
[2020-12-08 08:17] LABS: Hypochromasia 2+; Lymphocytes % 7 % (10-50); Monocytes % 3 % (2-9); Neutrophils % 86 % (42-76); Platelet Estimate Moderate Increase; Total Cells Counted 100
--- NOTE | 2020-12-08 17:05 | PC.NURSE ---
Pt is confused and disoriented. Speech is clear, although spontaneous. No verbal complaints of pain or SOA. Pt has received Morphine and Percocet per MAR for objective s/s of pain. Pt is receiving O2 via NC @ 4 LPM with sats. >90%. Lungs sounds reveal rhonchi. RT hip surgical dressing is C/D/I. RT elbow skin tear dressing C/D/I. No edema noted. Pt has been turned/repositioned Q2H this shift. Abduction pillow is in place. F/C is patent and draining clear, dark, yellow urine at bedside to gravity. 1 small, brown, soft BM today. Implanted port in place to the RT upper chest is patent and SL. VSS. Call light within reach. Bed safety alarm is set. Will continue to monitor.
[2020-12-09] VITALS (10 sets, daily range): BP systolic 122–147; BP diastolic 70–84; PULSE 94–110; RESP 17–22; TEMP 36.4–36.9; O2SAT 88–100; BMI 20.2
--- NOTE | 2020-12-09 05:13 | PC.NURSE ---
ice passed trash and linens picked up. pt had no other needs.[id number]
--- NOTE | 2020-12-09 06:31 | PC.NURSE ---
Patient extremely confused all night and did not rest well. Patient incessantly yells out. Patient received 1 dose Morphine 2 mg for pain. Patient restless all night. Output through Berrios Catheter. Will continue to monitor for any acute changes.
--- NOTE | 2020-12-09 07:51 | HMH.ACPN2 ---
Internal Medicine - PN: Subj *Date: 12/09/20 *Time: 07:51 Interval history: Through the night patient was a little bit restless according to nursing staff. Did respond well to a dose of IV morphine for pain. This morning she answers questions a little bit more appropriately as far as symptoms and does not digress into delusional conversation as much. Denies pain, reports that her breathing is about the same. Exam Vital signs and Labs for Last 24 Hours: Temp Pulse Resp BP Pulse Ox 97.6 F 94 H 19 123/75 93 L 12/09/20 03:44 12/09/20 03:44 12/09/20 03:44 12/09/20 03:44 12/09/20 03:44 Laboratory Results - last 24 hr 12/08/20 06:30: Total Counted 100, Neutrophils % (Manual) 86 H, Band Neutrophils % 2.0, Lymphocytes % (Manual) 7 L, Monocytes % (Manual) 3, Metamyelocytes % 2.0 H, Platelet Estimate Moderate increase, Hypochromasia 2+ I & O for Last 24 hours: Intake & Output 12/06/20 12/07/20 12/08/20 12/09/20 11:59 11:59 11:59 11:59 Intake Total 2855 / 2855 1160 / 1160 135 / 135 360 / 360 Output Total 2500 / 2500 1275 / 1275 652 / 652 500 / 500 Balance 355 / 355 -115 / -115 -517 / -517 -140 / -140 Weight 135 lb 9 oz 137 lb 7 oz 138 lb 14.259 oz 137 lb 2.04 oz Narrative: Poor air movement bilaterally but unchanged over the past 2 to 3 days. At baseline. Symmetric air entry. Heart rate regular. Abdomen is soft, extremities without edema or clubbing, wearing oxygen. Neurologic exam without focal deficits but memory and dementia issues remain significant. Delusional conversation is not as bad this morning on my exam. Assessment and Plan (1) COPD (chronic obstructive pulmonary disease) Status: Acute Qualifiers: COPD type: unspecified COPD Qualified Code(s): J44.9 - Chronic obstructive pulmonary disease, unspecified Category: Medical Code(s): J44.9 - Chronic obstructive pulmonary disease, unspecified (2) HAP (hospital-acquired pneumonia) Status: Acute Category: Medical Code(s): J18.9 - Pneumonia, unspecified organism; Y95 - Nosocomial condition (3) Acute delirium Status: Acute Category: Medical Code(s): R41.0 - Disorientation, unspecified (4) Anemia Status: Acute Qualifiers: Anemia type: unspecified type Qualified Code(s): D64.9 - Anemia, unspecified Category: Medical Code(s): D64.9 - Anemia, unspecified (5) Breast cancer in female Status: Acute Qualifiers: Breast location: unspecified site of breast Estrogen receptor status: unspecified Laterality: unspecified laterality Qualified Code(s): C50.919 - Malignant neoplasm of unspecified site of unspecified female breast Category: Medical Code(s): C50.919 - Malignant neoplasm of unspecified site of unspecified female breast (6) Diastolic CHF Status: Acute Category: Medical Code(s): I50.30 - Unspecified diastolic (congestive) heart failure (7) Hip fracture Status: Acute Qualifiers: Encounter type: initial encounter Fracture type: closed Laterality: right Qualified Code(s): S72.001A - Fracture of unspecified part of neck of right femur, initial encounter for closed fracture Category: Medical Code(s): S72.009A - Fracture of unspecified part of neck of unspecified femur, initial encounter for closed fracture (8) Leukocytosis Status: Acute Qualifiers: Leukocytosis type: unspecified Qualified Code(s): D72.829 - Elevated white blood cell count, unspecified Category: Medical Code(s): D72.829 - Elevated white blood cell count, unspecified (9) Wrist fracture, right Status: Acute Qualifiers: Encounter type: initial encounter Fracture type: closed Qualified Code(s): S62.101A - Fracture of unspecified carpal bone, right wrist, initial encounter for closed fracture Category: Medical Code(s): S62.101A - Fracture of unspecified carpal bone, right wrist, initial encounter for closed fracture - Assessment and plan all Dx Assessment and Pl
--- NOTE | 2020-12-09 16:22 | PC.NURSE ---
pt oriented to self only. pt has been removing clothing and nasal cannula. pt remains confused but is cooperative with staff when redirection is attempted. PAC to right chest remains accessed and saline locked. Lung sounds reveal wheezes throughout. VSS. Will continue to monitor
[2020-12-10] VITALS: BP 133/84; PULSE 103; RESP 20; TEMP 36.6; O2SAT 100
--- NOTE | 2020-12-10 03:47 | PC.NURSE ---
A&OX1. PT CONTINUES TO BE CONFUSED T/O SHIFT. WHILE AWAKE, PT PULLS CLOTHING OFF AND SHOUTS MAMA . PT DID REST BETTER TONIGHT WITH ADDITION OF ROXANOL FOR AIR HUNGER ALONG WITH ATIVAN FOR ANXIETY. PT RESTED OFF AND ON T/O SHIFT. BED SAFETY APPLIED. PT TURNED Q2H. FC DRAINING DARK YELLOW URINE. NO C/O THUS FAR. VSS WILL CONTINUE TO MONITOR.
[2020-12-10 03:59] VITALS: BP 139/84; PULSE 107; RESP 21; TEMP 37.1; O2SAT 92
[2020-12-10 06:10] VITALS: PULSE 100; PULSE 97; O2SAT 98
[2020-12-10 08:00] VITALS: BP 134/84; PULSE 96; RESP 16; TEMP 36.9; O2SAT 99
--- NOTE | 2020-12-10 08:21 | HMH.DCSUM ---
General - General Admission date:: 12/03/20 Discharge date: 12/10/20 HPI HPI: 59-year-old white female with oxygen requiring COPD and a history of breast cancer, metastatic to lung, lymph nodes, currently on active chemotherapy with Port-A-Cath in place, who was in her house yesterday doing some kitchen work and fell down after getting some food out of the refrigerator, fell onto her pelvic area, was unable to walk, brought to the emergency department. Found to have hip fracture, wrist fracture and was admitted to hospital for further evaluation. This morning she feels about her normal self, wearing oxygen, comfortable, denies pain or shortness of air as long as she does not move about. Hospital Course Hospital Course: Patient was admitted, work-up was started, found to have significant right-sided hip fracture, orthopedics was consulted, recommended hemiarthroplasty and this was done the following day once available prosthesis were procured. The patient did well with the procedure and came through with good cardiac and pulmonary mechanics intact. Over the next 24 to 48 hours however the patient struggled with a lot of hospital related delirium and psychosis, apparently she has some of this at home but it was dramatically exacerbated in the hospital. Her regular antidepressants were discontinued and low-dose Risperdal was started, which seemed to help. This did reduce patient's ability to undergo physical therapy, and she also continued to have quite a bit of oxygen requirement but this stabilized. Also, 2 days ago patient was restarted on steroids, she had been on steroids apparently at home for quite a while and the thinking was coming off of the steroids had caused some degree of mental status confusion. Restarting steroids did seem to help in regards to confusion and mental status issues. Over the next couple of days she did a little bit better with continued Risperdal and over the weekend we had extensive discussions with the family regarding possibility of ongoing physical therapy versus consideration of hospice care given her stage IV breast cancer. Records were received from her oncology office in [place] revealing that she has active pulmonary metastasis based on PET scan readings, and that chemotherapy and other therapy options are apparently not under consideration at this point. Given the patient's and family's desire to recover some function it was decided to go ahead and try physical therapy at the halfway in [place], and patient will be transferred there today. She will continue her Risperdal twice daily, we will prescribe extremely low-dose pain medication as noted, PT/OT evaluation will be needed. We will follow her on her halfway rounds. Please note she will continue a DNR status based on her stage IV breast cancer diagnosis and we will give consideration to hospice care if physical therapy is not able to be performed or her situation declines. Please note she will need a CBC and BMP on 12/13/2020. Objective Vital signs: Temp Pulse Resp BP Pulse Ox 98.8 F 100 H 21 139/84 98 12/10/20 03:59 12/10/20 06:10 12/10/20 03:59 12/10/20 03:59 12/10/20 06:10 no acute distress, chronically ill appearing Comments: Somewhat confused but pleasant, much more oriented in regards to conversation then previously - *Routine HEENT Exam Head: Present: normocephalic Eye: Present: EOMI, PERRL ENT: Present: mucous membranes moist - *Routine Neck Exam Present: supple - *Routine Respiratory Exam Present: rhonchi, distant breath sounds - *Routine Cardiovascular Exam Present: RRR - *Routine Abdominal Exam Present: soft, normoactive bowel sounds. Absent: tenderness - *Routine Extremities Exam Absent: cyanosis, clubbing, edema Comments: Distal pulses intact in both feet, scar evaluation and hip evaluation per orthopedic note. - *Routine Skin Exam Present: warm. Absent: rash - Det
--- NOTE | 2020-12-10 09:55 | HMH.PULMPN ---
Internal Medicine - PN: Subj *Date: 12/10/20 *Time: 11:01 Interval history: No acute respiratory events overnight. Patient this morning saturating 97% on 3 and half liters, weaned to 2 L nasal cannula. Will wean oxygen as tolerated. Exam - Constitutional Constitutional:: Present: no acute distress, comfortable - HENMT Exam HENMT: Present: normocephalic, atraumatic - Eye Exam Eyes:: Present: eyelids normal - Neck Exam Neck:: Present: normal visual inspection - Respiratory Exam Respiratory:: Present: no respiratory distress, normal respiratory effort, crackles. Absent: accessory muscle use - Cardiovascular Exam Cardiac:: Present: S1, S2 - Skin Exam Skin: Present: warm, no rash - Neurological Exam Neurological: Present: awake. Absent: alert, normal cognition - Extremities Exam Extremities: Present: no cyanosis, no clubbing Assessment and Plan (1) COPD (chronic obstructive pulmonary disease) Status: Chronic Qualifiers: COPD type: unspecified COPD Qualified Code(s): J44.9 - Chronic obstructive pulmonary disease, unspecified Category: Medical Code(s): J44.9 - Chronic obstructive pulmonary disease, unspecified (2) HAP (hospital-acquired pneumonia) Status: Ruled-out Category: Medical Code(s): J18.9 - Pneumonia, unspecified organism; Y95 - Nosocomial condition - Assessment and plan all Dx Assessment and Plan for all problems:: #COPD: #Hospital-acquired pneumonia: 59-year-old COPD long-term oxygen therapy at 4 L started in the last 6 months,history of asthma presented with history of fall. Further questioning patient denies any fevers or chills or worsening productive phlegm. Auscultation bilateral decreased breath sounds with significant wheezing. Patient successfully completed her surgery during this hospital admission. CT scan performed 12/07/20 reviewed did not show any obvious parenchymal opacity/pneumonia. Patient did have diffuse emphysematous changes. Noted to have concerning pulmonary nodules or atelectasis that needs an outpatient follow-up repeat imaging. Showed small bilateral loculated effusions likely sequela from her prior malignant effusion. Records obtained from outside hospital reviewed, patient was diagnosed with stage IV breast cancer in 2016 and has been receiving chemotherapy since then her most recent PET scan from April 2020 was reported to have continued demonstration of viable neoplasm noted in the right lower lung when compared to her prior PET scan from December 2019. Patient recently seen her oncologist in October 2020. Nasal MRSA PCR resulted negative. Patient continued to remain altered. Patient respiratory status continued to improve on this hospital admission with antibiotics and diuretics. Patient this morning saturating 97% to 98% on 3 and half liters nasal cannula, weaned to 2 L nasal cannula. We will continue wean oxygen as tolerated. Plan: - Continue incentive Spirometry - We will continue nebulization therapy at DuoNebs every 6 hours along with budesonide every 12 to optimize her pulmonary status, she can be discharged on triple inhaler therapy along with DuoNebs every 6 hours as needed or albuterol inhaler every 6 hours as needed - Continue cefepime for a total of 7 days for possible HAP day 02/20 (Patient on steroids and levofloxacin for her recent presumed pneumonia from an outside hospital.) - Follow with oncologist as an outpatient basis for her continued therapy for Stage IV breast cancer. - Strict aspiration precautions #Thank you for involving pulmonary in this patient care. Please call pulmonary with any further questions or concerns.
[2020-12-10 12:06] VITALS: PULSE 93; PULSE 94; O2SAT 96
--- NOTE | 2020-12-10 12:28 | HMH.ORTHPN ---
Subjective Date: 12/10/20 Time: 12:00 Principal diagnosis: Fall with wrist and hip fractures Interval history: The patient remains alert but not oriented. Her son is currently feeding her lunch and she is eating mashed potatoes and ice cream. No complaints with regards to the right hip or distal radius. PN: Obj Ex Vital signs: Temp Pulse Resp BP Pulse Ox 98.4 F 94 H 16 134/84 96 12/10/20 08:00 12/10/20 12:06 12/10/20 08:00 12/10/20 08:00 12/10/20 12:06 - Constitutional no acute distress - Routine HEENT Exam Head: Present: normocephalic Eye: Present: EOMI ENT: Present: mucous membranes moist - Routine Neck Exam Present: trachea midline - Routine Respiratory Exam Absent: respiratory distress - Routine Cardiovascular Exam Present: RRR - Routine Abdominal Exam Present: soft. Absent: tenderness - Routine Extremities Exam Comments: R hip dressing c/d/i, no strikethrough +DF/PF/EHL RLE SILT distally RLE palpable pedal pulses RLE, foot pink/warm R calf soft, non-tender - Routine Skin Exam Present: warm - Urinary Catheter Management Berrios Cath placed during this visit: yes Urethral indwelling: Yes Reason for continuing: Measure accurate output Insertion date: 12/03/20 Progress Note: A&P (1) COPD (chronic obstructive pulmonary disease) Status: Chronic (2) HAP (hospital-acquired pneumonia) Status: Ruled-out (3) Acute delirium Status: Acute (4) Breast cancer in female Status: Acute (5) Hip fracture Status: Acute (6) Wrist fracture, right Status: Acute (7) Anemia Status: Chronic (8) Diastolic CHF Status: Chronic (9) Leukocytosis Status: Chronic Assessment and Plan for All Diagnoses:: 60yo F with metastatic breast cancer and COPD on home oxygen; s/p fall 12/02/20 with displaced R femoral neck fracture and non-displaced R distal radius fracture --> POD 6 s/p R hip hemiarthroplasty -- change dressing once daily; at [facility], may change every 1-2 days as long as it remains dry -- continue wrist brace R wrist, minimal WB <1-2lb -- may be OOB as tolerated with assist; WBAT RLE -- posterior hip precautions, hip abduction pillow while in bed -- PT/OT to continue while admitted -- SCD LLE, encourage IS 10x/hr while awake -- ice pack R hip as needed -- DVT prophy: lovenox -- continue antibiotics per PCP/pulmonary -- pain control; po/IV meds ordered PRN -- care management consult for dispo planning -- has bed at [facility], [place] when ready for d/c -- medical management per Dr. Montanez/Vic
== END 2020-12-10 13:25 | DRG 521 ==
LOC: ER 21:38 → ICU 12-03 02:11 → 2ND 12-03 18:00
PROVIDERS: Internal Medicine Adolescent Medicine; Internal Medicine Pulmonary Disease; Orthopaedic Surgery; Admitting Provider Internal Medicine Adolescent Medicine; Emergency Provider Emergency Medicine; PCP Nurse Practitioner Family; Visit Provider Internal Medicine Adolescent Medicine
PROC: 0SRR0J9 Replacement of Right Hip Joint, Femoral Surface with Synthetic Substitute, Cemented, Open Approach (ICD-10-PCS; CPT 27120; principal; 2020-12-04 13:45)
DX: S72.011A Unspecified intracapsular fracture of right femur, initial encounter for closed fracture (principal); J18.9 Pneumonia, unspecified organism; I50.31 Acute diastolic (congestive) heart failure; S52.391A Other fracture of shaft of radius, right arm, initial encounter for closed fracture; C78.00 Secondary malignant neoplasm of unspecified lung; C77.9 Secondary and unspecified malignant neoplasm of lymph node, unspecified; D62 Acute posthemorrhagic anemia; J44.0 Chronic obstructive pulmonary disease with (acute) lower respiratory infection; W01.0XXA Fall on same level from slipping, tripping and stumbling without subsequent striking against object, initial encounter; Y92.010 Kitchen of single-family (private) house as the place of occurrence of the external cause; C50.919 Malignant neoplasm of unspecified site of unspecified female breast; F17.210 Nicotine dependence, cigarettes, uncomplicated; Z99.81 Dependence on supplemental oxygen; D63.0 Anemia in neoplastic disease; D72.829 Elevated white blood cell count, unspecified; Y95 Nosocomial condition; Z66 Do not resuscitate; R41.0 Disorientation, unspecified; F03.90 Unspecified dementia, unspecified severity, without behavioral disturbance, psychotic disturbance, mood disturbance, and anxiety; R33.9 Retention of urine, unspecified
CPT/HCPCS: 27120; 36415; 70450; 71045; 71250; 72125; 72170; 72192; 73110; 73502; 73700; 74018; 80048; 80053; 80202; 81001; 82140; 82803; 83605; 83735; 84145; 84484; 84550; 85007; 85014; 85018; 85025; 85610; 85651; 86140; 86850; 87070; 87081; 87205; 87506; 87581; 87633; 87798; 93005; 93306; 94640; 94760; 94761; 96365; 96372; 96375; 96376; 97163; 97165; 97530; 97535; 99285; C1776; J1642; J2405; J3370; P9016; U0003

== ENCOUNTER → 2020-12-20 13:20 | Outpatient (CLI) | payer MEDICARE, OTHER, SELFPAY ==
--- NOTE | 2020-12-20 13:25 | XR_ITS ---
PROCEDURE: XR HIP RT 2-3V W/PELVIS CLINICAL INDICATION: s/p RT hip susana Follow-up hip replacement COMPARISON: CR XR HIP RT 2-3V W/PELVIS from 12/04/2020 FINDINGS: Status post right hip hemiarthroplasty with bipolar prosthesis which is in good position with no evidence of orthopedic complication. No acute fracture or dislocation. IMPRESSION: Status post right hip hemiarthroplasty placement with good alignment Dictated by: Talon Adkins MD 12/20/2020 14:11 Talon Adkins MD in OV 12/20/2020 14:11
== END ==
PROVIDERS: PCP Internal Medicine Adolescent Medicine; Visit Provider Orthopaedic Surgery
DX: Z09 Encounter for follow-up examination after completed treatment for conditions other than malignant neoplasm (principal); S72.001A Fracture of unspecified part of neck of right femur, initial encounter for closed fracture
CPT/HCPCS: 73502